=== PATIENT | female | born 1995 | race American Indian/Alaskan Native ===

== ENCOUNTER → 2024-08-07 | Outpatient (CLI) | payer MEDICAID, SELFPAY ==
--- NOTE | 2024-08-07 13:13 | XR_ITS ---
EXAMINATION: Ankle, right 3 views . Technique: Ankle AP, oblique, lateral 3 views Date and time of exam: August 07, 2024 1435 hours INDICATIONS: Patient fell last week with injury to the ankle, ankle pain. FINDINGS: No acute fracture Lateral malleolar soft tissue swelling No ankle dislocation IMPRESSION: No acute fracture
== END | disposition home or self-care (01) ==
PROVIDERS: PCP Physician Assistant; Referring Provider Physician Assistant; Visit Provider Physician Assistant
DX: S93.401A Sprain of unspecified ligament of right ankle, initial encounter (principal); W19.XXXA Unspecified fall, initial encounter
CPT/HCPCS: 73610

== ENCOUNTER 2025-01-08 10:33 | Outpatient (AMB) | payer BC, MEDICAID, SELFPAY ==
--- NOTE | 2025-01-08 10:41 | AMB.OBINITIA ---
Vital Signs 01/08/25 10:42 Height 1.65 m Height Method Stated Weight 108.976 kg Weight Measurement Method Standing Scale BMI 39.9 BP 122/81 Blood Pressure Source Automatic Cuff Blood Pressure Location Right Upper Arm Position Sitting Respiration 17 Pulse 98 Pulse Source Monitor Temp 97.8 F Temp Source Temporal Artery Scan Pulse Oximetry (%) 98 Oxygen Delivery Method Room Air Allergies/Home Meds Allergies & Medications Allergies No Known Allergies Allergy (Verified 01/08/25 15:57) Medication Reconciliation vit no.95-ferrous fumarate 28 mg-folic acid 800 mcg tablet () 1 tab PO DAILY 09/24/22 [History Confirmed 01/08/25] metformin 500 mg tablet 500 mg PO BID 11/30/22 [History Confirmed 01/08/25] aspirin 81 mg tablet,delayed release (Adult Aspirin Regimen) 81 mg PO QDAY #30 tabs 01/08/25 [Rx] diphenhydramine-zinc acetate 1 %-0.1 % topical cream (Benadryl Itch Stopping) 1 applic topical BID #28.3 grams 01/08/25 [Rx] vits no.130-ferrous fum 27 mg iron-folic acid 800 mcg tablet ( Vitamin) 1 tab PO QDAY #60 tabs 01/08/25 [Rx] Intake Visit Data Collection New Patient or Established: New Patient (never been to [facility]) Reason for Visit:: OBI TRANSFER Seen by Clinical Staff ONLY (RN/MA): No Analytical Tech Required: No Do You Feel Safe at Home: Yes Authorities Contacted: N/A PCP or OBGYN visit in last 3 months: No Hx Now: Yes Are you currently on any form of Control: No Pain Present Currently: No Pain Scale Used: Skinner-Lilly/Numerical Smoking Status Smoking Status: Never smoker Questionnaires Covid-19 Vaccine Questionnaire Has patient been vacinated for Covid-19 Have you been vacinated for Covid-19: No PHQ-9 PHQ-2 Over the last 2 weeks, how often have you been bothered by any of the following problems? 1. Little interest or pleasure in doing things: not at all 2. Feeling down, depressed, or hopeless: not at all Total score: 0 PHQ-9 3. Trouble falling or staying asleep, or sleeping too much: Not at all 4. Feeling tired or having little energy: Not at all 5. Poor appetite or overeating: Not at all 6. Feeling bad about yourself - or that you are a failure or have let yourself or your family down: Not at all 7. Trouble concentrating on things, such as reading the newspaper or watching television: Not at all 8. Moving or speaking so slowly that other people could have noticed? - Or the opposite - being so fidgety or restless that you have been moving around a lot more than usual: not at all 9. Thoughts that you would be better off or of hurting yourself in some way: Not at all Total score: 0 If you checked off any problems, how difficult have these problems made it for you to do your work, take care of things at home, or get along with other people?: not difficult at all Source: Developed by Drs. Gianluca Irizarry, Lluvia Rodriguez, Shahbaz England and colleagues, with an educational ki from [employer]. Depression screen completed yes Social History Living Situation History Marital Status: Lives With: Family Housing: House Tobacco History Smoking Status: Never smoker Second Hand Smoke Exposure: No Alcohol History Alcohol Intake: Former Domestic Abuse History Do You Feel Safe at Home: Yes History of Present Illness HPI Narrative 29-year-old 4 para 3 for OBI. Patient was referred by to OB [facility]. Happy about the . She has an LMP September 25, 2022. Her EDC based on that is July 01, 2025. Patient had gone to to labor over for verification and also complaints of a rash that she has had for 2 months. The rash started as a little patch and then has extended both her legs and her arms. It is very itchy. She was given Keflex to take 250 p.o. twice daily x 7 days and then she was given a Benadryl cream that seems to help a little bit. She was also given a hydrocortisone cream that she used for 3 days and it still has not improved. She reports movement. Previous x 1. Patient has a previous history occasionally drinking beer until she found out she was and she has stopped drinking. She also has previous history of vaping and nicotine use which she has stopped in 2017. So she is taking prenatals right now on Keflex. Denies leaking or bleeding. Denies any first trimester discomforts. Patient has a history of GDM with her last and. 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 Her last period September 25, 2024. Her EDC based on that 2025. Previous diabetes with the last on metformin. Patient is currently using advised that is checking her sugars daily. She reports that she has noticed that it increases her drops depending on her diet [place] for macular papular rash that she has had for 2 months and has worsened and spread more. She reports the rats can be very itchy. She denies any SAB complaints at this time and has light movement . I refilled the Benadryl cream that patient has been using for the rash. Consulted with OB. And did a prescription for Zyrtec that she will take daily. For the itching I ordered a OB panel with a CMP hemoglobin A1c and OB eye panel. We also did NIPT and carrier screens with that. Then I scheduled her an appointment [facility] with maternal- medicine for sono. Discussed SAB precautions. And I scheduled her for her next appointment with Dr. Ohara to evaluate her sugars. I discussed with patient GDM diet walking 40 minutes a day and I also talked to her if she could please Should the results of her blood sugars at fasting and then an hour after each. Reminded patient to bring her logs with her GDM results Menstrual History Menstrual reliability: definite Flow: normal Menstrual regularity: regular Monthly: Yes Age at menarche: 10 On control pills at conception: No Review of Systems Review of Systems Systems Reviewed: All systems reviewed, normal except as documented Exam Narrative Physical exam: FH=15, + fht 145, macular/papular rash both extremety and arms, red raised General Limitations: no limitations General Appearance: alert, in no apparent distress, comfortable, cooperative, healthy appearing, well developed and well groomed Head Head exam: atraumatic, normocephalic and normal inspection Neck Neck exam: Present normal inspection, full ROM and trachea midline Chest Chest inspection: Present normal inspection and symmetric chest wall rise Resp Respiratory exam: Present normal lung sounds bilaterally Card Cardiovascular exam: Present regular rate, normal rhythm and normal heart sounds Psych Psychiatric exam: Present normal affect and normal mood Skin Skin exam: Present warm, dry, intact, normal color and rash (over both leg and arms, macular,papular) Office Procedures OB Clinic LOC & Office Proc's Nursing/Assessment Patient Status: Initial/New Patient OB Clinic Nursing Assessment: Medication Reconciliation, Update PMH in EMR and Vital Signs OB Clinic Coordination of Care: Complex Care and Chronic Disease 1-5, Consent,records obtained, informed consent, Education Simp Pt/Fam, Results/Orders obtained and Staff clarify orders Special Needs: Heart tones New Patient Charge New Patient Point Assignment: [id number] New Patient Point Charge: MANAGER PMO Level 4 ([id number]) Assessment & Plan Diagnosis / Problem List (1) Encounter for supervision of high risk in second trimester, antepartum: Status: Acute (2) Encounter for maternal care for low transverse scar from previous delivery: Status: Acute Plan Patient is to continue to log her blood sugar results. And bring this with her at her next visit. Scheduled for maternal- medicine OB sono. NIPT and carrier screens drawn today. I started patient on Zyrtec daily. And refilled her Benadryl cream. Patient was advised to stop the Keflex. Discussed GDM diet and walking 40 minutes a day. OB panel was done with NIPT today along with CMP. A1c was also included. And patient will return with OB in 3 weeks to evaluate sugars. Additional Plan Follow Up: 4 Weeks (obc)
[2025-01-08 10:42] VITALS: BP 122/81; PULSE 98; RESP 17; TEMP 36.6; O2SAT 98; BMI 39.9
== END 2025-01-08 11:48 | disposition home or self-care (01) ==
LOC: HODSOBC 10:33
PROVIDERS: PCP Physician Assistant; Referring Provider Physician Assistant; Supervising Provider Advanced Practice Midwife; Visit Provider Advanced Practice Midwife
DX: O09.292 Supervision of pregnancy with other poor reproductive or obstetric history, second trimester (principal); O34.211 Maternal care for low transverse scar from previous cesarean delivery; Z3A.15 15 weeks gestation of pregnancy; O26.892 Other specified pregnancy related conditions, second trimester; L29.9 Pruritus, unspecified; Z86.32 Personal history of gestational diabetes; Z87.891 Personal history of nicotine dependence
CPT/HCPCS: 99204; G0463

== ENCOUNTER 2025-02-12 11:16 | Outpatient (AMB) | payer BC, MEDICAID, SELFPAY ==
[2025-02-12 11:34] VITALS: BP 118/78; PULSE 93; RESP 17; TEMP 36.7; O2SAT 95; BMI 39.5
--- NOTE | 2025-02-12 11:34 | OBCLNT_ITS ---
Vital Signs 02/12/25 11:34 Height 1.65 m Height Method Measured Weight 107.671 kg Weight Measurement Method Standing Scale BMI 39.5 BP 118/78 Blood Pressure Source Automatic Cuff Blood Pressure Location Right Upper Arm Position Sitting Respiration 17 Pulse 93 Pulse Source Monitor Temp 98.1 F Temp Source Temporal Artery Scan Pulse Oximetry (%) 95 Oxygen Delivery Method Room Air Allergies/Home Meds Allergies & Medications Allergies No Known Allergies Allergy (Verified 02/12/25 11:36) Medication Reconciliation vit no.95-ferrous fumarate 28 mg-folic acid 800 mcg tablet () 1 tab PO DAILY 09/24/22 [History Confirmed 02/12/25] metformin 500 mg tablet 500 mg PO BID 11/30/22 [History Confirmed 02/12/25] aspirin 81 mg tablet,delayed release (Adult Aspirin Regimen) 81 mg PO QDAY #30 tabs 01/08/25 [Rx Confirmed 02/12/25] diphenhydramine-zinc acetate 1 %-0.1 % topical cream (Benadryl Itch Stopping) 1 applic topical BID #28.3 grams 01/08/25 [Rx Confirmed 02/12/25] vits no.130-ferrous fum 27 mg iron-folic acid 800 mcg tablet ( Vitamin) 1 tab PO QDAY #60 tabs 01/08/25 [Rx Confirmed 02/12/25] Intake Visit Data Collection New Patient or Established: Established Patient (seen at [facility] within 3 years) Reason for Visit:: OBC Consent obtained for Telemed Visit: No Seen by Clinical Staff ONLY (RN/MA): No 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 1. Little interest or pleasure in doing things: not at all PHQ-9 8. Moving or speaking so slowly that other people could have noticed? - Or the opposite - being so fidgety or restless that you have been moving around a lot more than usual: not at all Source: Developed by Drs. Gianluca Irizarry, Lluvia Rodriguez, Shahbaz England and colleagues, with an educational ki from [employer]. 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 The rash has been present for about 2.5 months and is widespread. While the rash has thinned out and turned into spots, the patient continues to experience itching. She denies any discharge from the rash. Previous treatment prescribed by another provider was ineffective, but the patient found some relief with Benadryl and oatmeal baths. She has a history of gestational diabetes mellitus in her previous and was previously on metformin for GDM management. The patient mentions that this feels different from her previous one. She is currently approximately 20 weeks and has transferred care to this provider. She is currently monitoring her blood glucose levels due to her history of GDM. During the visit, an informal ultrasound revealed the possibility of twin , which may explain why the heartbeat was not easily detected earlier. This finding is pending confirmation by a formal ultrasound. She is a patient from the [facility] with an obstetric history of G3 T1 L1. Her previous resulted in delivery of a male named Tim. She has at least one child at home. ROS: Positive for persistent rash and itching for 2.5 months. Rash has thinned out but turned into spots, present everywhere. Negative for discharge from rash. Care OB Visit Log OB Flowsheet Initial Weight: Not Recorded Date -?-?-?-?-?-?-?-?-?-?-?-?- EGA Weight BP Alb Glu CTX Pres Fundal ht FHR Mov Dilation Station Effacement Hx Notes Visit Note 01/08/25 -?-?-?-?-?-?-?-?-?-?-?-?- 15w 0d 108.976 kg 122/81 absent unknown 15 A 145 -?-?-?-?-?-?-?-?-?-?-?-?- B active 29-year-old g ravida 4 para 3 for OBI. Her last period September 25, 2024. Her EDC based on that 2025. Previous diabetes with the last on metformin. Patient is currently using advised that is checking her sugars daily. She reports that she has noticed that it increases her drops depending on her diet [place] for macular papular rash that she has had for 2 months and has worsened and spread more. She reports the rats can be very itchy. She denies any SAB complaints at this time and has light movement . I refilled the Benadryl cream that patient has been using for the rash. Consulted with OB. Leslie atkins did a prescription for Zyrtec that she will take daily. For the itching I ordered a OB panel with a CMP hemoglobin A1c and OB eye panel. We also did NIPT and carrier screens with that. Then I scheduled her an appointment [facility] with maternal- medicine for sono. Discussed SAB precautions. And I scheduled her for her next appointment with Dr. Ohara to evaluate her sugars. I discussed with patient GDM diet walking 40 minutes a day and I also talked to her if she could please Should the results of her blood sugars at fasting and then an hour after each. Reminded patient to bring her logs with her GDM results 02/12/25 -?-?-?-?-?-?-?-?-?-?-?-?- 20w 0d 107.671 kg 118/78 absent unknown A 145 -?-?-?-?-?-?-?-?-?-?-?-?- B 150 - Patient is currently checking her blood glucose levels. - She reports a rash that developed week s after discovering her : - Duration: approximately 2.5 months - Distribution: widespread - Symptoms: itching, thinning of rash, formation of spots, scabbing - No discharge reported - Partial improvement noted - Previous treatment with unspecified medication was ineffective - Current management: Benadryl and oat meal baths providing some relief - Patient is a transfer of care from [facility] provider in the office. - She is from the [facility]. - Order OB panel labs (non-fasting) - Continue Benadryl and oatmeal baths fo r rash - Add blood tests to check liver and kid bri function - Schedule ultrasound with radiology dep artment to confirm twin - Monitor for call from [facility] regarding specialist ultrasound in [place] - Continue blood glucose monitoring MARJORIE Calculator Estimated Delivery Date Method Current WG Current Estimate 07/02/25 LMP (Certain) 23w 0d # 2 Exam Narrative Physical exam: - Skin: Rash observed, described as thinned out and turned into spots. Rash is widespread with scabbing present. No discharge noted from rash sites. - Abdominal: heartbeats auscultated. Two heads visualized on bedside ultrasound. Office Procedures OB Clinic LOC & Office Proc's Nursing/Assessment Patient Status: Established Patient OB Clinic Nursing Assessment: Medication Reconciliation, Update PMH in EMR and Vital Signs OB Clinic Coordination of Care: Complex Care and Chronic Disease 1-5, Consent,records obtained, informed consent, Education Simp Pt/Fam, 4+ Autho rizations needed, Lab and Imaging orders, Ref for ancillary service and Results/Orders obtained Special Needs: Heart tones Established Patient Charge Established Patient Point Assignment: 180 Established Patient Point Charge: EP Level 5 (160-above) Assessment & Plan Diagnosis / Problem List (1) Encounter for maternal care for low transverse scar from previous delivery: Status: Acute (2) Encounter for supervision of high risk in second trimester, antepartum: Status: Acute (3) Twin gestation in second trimester: Status: Acute Plan Twin : - Patient is approximately 20 weeks with twins, discovered during this visit. - Two distinct heartbeats and heads were visualized on brief in-office ultrasound. - This finding explains why the heartbeat was not easily detected earlier. Plan: - Refer for comprehensive ultrasound with radiology department. - Schedule follow-up with [facility] for specialist ultrasound in [place]. - Monitor closely for complications associated with twin pregnancies. - Educate patient on signs and symptoms to watch for in a twin . Persistent -Associated Rash: - Rash started weeks after confirmation and has persisted for approximately 2.5 months. - Widespread, itchy, and has evolved from initial presentation to spots. - Previous treatments were ineffective, but Benadryl and oatmeal baths have provided some relief. - Rash is thinning out but still present and causing discomfort. Plan: - Continue Benadryl as needed for itching. - Recommend oatmeal baths and good moisturizer use. - Order liver and kidney function tests to rule out underlying causes. - Reassess after lab results are available. History of Gestational Diabetes Mellitus (GDM): - Patient has history of GDM in previous and was treated with metformin. - Currently monitoring blood glucose levels. Plan: - Review patient's current blood glucose logs. - Order OB panel and routine labs. - Monitor closely for recurrence of GDM. - Discuss diabetes management strategies if GDM is diagnosed.
== END 2025-02-12 12:13 | disposition home or self-care (01) ==
LOC: HODSOBC 11:16
PROVIDERS: PCP Physician Assistant; Referring Provider Physician Assistant; Supervising Provider Obstetrics & Gynecology; Visit Provider Obstetrics & Gynecology
DX: O09.292 Supervision of pregnancy with other poor reproductive or obstetric history, second trimester (principal); O34.211 Maternal care for low transverse scar from previous cesarean delivery; O09.892 Supervision of other high risk pregnancies, second trimester; O30.002 Twin pregnancy, unspecified number of placenta and unspecified number of amniotic sacs, second trimester; O26.892 Other specified pregnancy related conditions, second trimester; R21 Rash and other nonspecific skin eruption; Z3A.20 20 weeks gestation of pregnancy; Z86.32 Personal history of gestational diabetes
CPT/HCPCS: 99215; G0463

== ENCOUNTER → 2025-02-12 | Outpatient (CLI) | payer BC, MEDICAID, SELFPAY ==
--- NOTE | 2025-02-12 13:05 | XR_ITS ---
Examination: age Limited TECHNIQUE: Sonographic images of the pelvis, transabdominal INDICATIONS: Second trimester twin gestations FINDINGS: Viable twin A breech presentation, spine maternal left Cardiac motion 148 BPM Placenta posterior grade 1. Umbilical cord insertion seen. Amniotic fluid index 13.5 cm. Cervix 3.0 cm. bladder kidneys stomach and spine seen. Ovaries obscured by bowel gas. Estimated gestational age 19 weeks 0 days Estimated weight 264.5 g Viable twin B transverse presentation spine anterior Cardiac motion 160 BPM Placenta anterior grade 1. Umbilical cord insertion seen bladder kidneys stomach and spine seen. Cervix 3.0 cm Ovaries obscured by bowel gas Estimated gestational age 18 weeks 1 day Estimated weight 211.8 g IMPRESSION: Viable twin gestations as above
[2025-02-12 13:38] LABS: Collection Type, Urine Clean Catch
[2025-02-12 14:10] LABS: Basophils # (Auto) 0.0 Thou/mm3 (0.0-0.2); Basophils % (Auto) 0 % (0-2.5); Eosinophils # (Auto) 0.1 Thou/mm3 (0.0-0.5); Eosinophils % (Auto) 1 % (0-10); Hematocrit 35.1 % (36.0-46.0); Hemoglobin 12.2 g/dL (12.0-16.0); Immature Granulocytes Auto 0.04 Thou/mm3 (0.00-0.00); Lymphocytes # (Auto) 1.5 Thou/mm3 (1.0-4.8); Lymphocytes % (Auto) 18 % (10-50); Mean Corpuscular HGB Conc 34.8 g/dl (31.0-37.0); Mean Corpuscular Hemoglobin 28.8 pg (25.0-35.0); Mean Corpuscular Volume 83 fL (80-100); Monocytes # (Auto) 0.5 Thou/mm3 (0.0-0.8); Monocytes % (Auto) 6 % (0-12); Neutrophils # (Auto) 6.5 Thou/mm3 (1.8-7.7); Neutrophils % (Auto) 75 % (37-80); Nucleated Red Blood Cell # 0.00 Thou/mm3 (0.00-0.00); Nucleated Red Blood Cell % 0 /100 WBC (0); Platelet Count 318 Thou/mm3 (140-440); RDW Standard Deviation 47.6 fL (36.4-46.3); Red Blood Count 4.23 Miln/mm3 (4.00-5.20); White Blood Count 8.7 Thou/mm3 (3.6-11.0)
[2025-02-12 14:16] LABS: Glucose Estimated Average 120 mg/dL (80-131); Hemoglobin A1C 5.8 % Hgb (4.8-6.0)
[2025-02-12 14:38] LABS: Syphilis Nonreactive (Nonreactive)
[2025-02-12 14:47] LABS: HIV (1&2) Antibody Rapid Non-Reactive
[2025-02-12 15:06] LABS: Hepatitis B Surface Antigen Non Reactive (Non React); Hepatitis C Antibody Non Reactive (Non React); Rubella, IgG Antibody Reactive (Immune)
[2025-02-12 16:36] LABS: Chlamydia trachomatis PCR Negative (Not Detect); Neisseria Gonorrhoeae DNA PCR Negative (Not Detect); Trichomonas Negative (Negative)
[2025-02-12 18:46] LABS: Bacteria,Urine Rare; Bilirubin,Urine Negative (Negative); Blood,Urine Negative (Negative); Clarity,Urine Clear (Clear/Hazy); Color,Urine Lt-Yellow (Lt Yel-Yel); Culture Indicated,Urine Not Indicated; Glucose, Urine Trace (Negative); Ketones,Urine Negative (Negative); Leukocyte Esterase,Urine Positive (Negative); Nitrite,Urine Negative (Negative); PH,Urine 7.0 (5.0-7.0); Protein,Urine Negative (Neg - Trace); RBC,Urine 2 /hpf (0-3); Specific Gravity,Urine 1.010 (1.001-1.035); Squamous Epithelial Cell,Urine 3 /hpf (0-5); Urobilinogen,Urine Negative mg/dL (0.0-1.0); WBC,Urine 1 /hpf (0-5)
== END | disposition home or self-care (01) ==
PROVIDERS: PCP Nurse Practitioner Family; Referring Provider Obstetrics & Gynecology; Visit Provider Obstetrics & Gynecology
DX: O30.002 Twin pregnancy, unspecified number of placenta and unspecified number of amniotic sacs, second trimester (principal); O34.211 Maternal care for low transverse scar from previous cesarean delivery; Z3A.18 18 weeks gestation of pregnancy
CPT/HCPCS: 36415; 76805; 76810; 81001; 83036; 85025; 86703; 86762; 86780; 86803; 86850; 86900; 86901; 87340; 87491; 87591; 87661

== ENCOUNTER 2025-03-06 10:32 | Outpatient (AMB) | payer BC, MEDICAID, SELFPAY ==
--- NOTE | 2025-03-06 11:27 | AMB.OBVISIT ---
Vital Signs 03/06/25 11:28 Height 1.65 m Height Method Stated Weight 107.218 kg Weight Measurement Method Standing Scale BMI 39.4 BP 122/76 Blood Pressure Source Automatic Cuff Blood Pressure Location Left Upper Arm Position Sitting Respiration 18 Pulse 90 Pulse Source Monitor Temp 98.1 F Temp Source Oral Pulse Oximetry (%) 98 Oxygen Delivery Method Room Air Allergies/Home Meds Allergies & Medications Allergies No Known Allergies Allergy (Verified 04/06/25 01:02) Medication Reconciliation vit no.95-ferrous fumarate 28 mg-folic acid 800 mcg tablet () 1 tab PO DAILY 09/24/22 [History Confirmed 03/06/25] metformin 500 mg tablet 500 mg PO BID 11/30/22 [History Confirmed 03/06/25] aspirin 81 mg tablet,delayed release (Adult Aspirin Regimen) 81 mg PO QDAY #30 tabs 01/08/25 [Rx Confirmed 03/06/25] diphenhydramine-zinc acetate 1 %-0.1 % topical cream (Benadryl Itch Stopping) 1 applic topical BID #28.3 grams 01/08/25 [Rx Confirmed 03/06/25] vits no.130-ferrous fum 27 mg iron-folic acid 800 mcg tablet ( Vitamin) 1 tab PO QDAY #60 tabs 01/08/25 [Rx Confirmed 03/06/25] Intake Visit Data Collection New Patient or Established: Established Patient (seen at [facility] within 3 years) Reason for Visit:: CARE Seen by Clinical Staff ONLY (RN/MA): No 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 1. Little interest or pleasure in doing things: not at all 2. Feeling down, depressed, or hopeless: not at all Total score: 0 PHQ-9 3. Trouble falling or staying asleep, or sleeping too much: Not at all 4. Feeling tired or having little energy: Not at all 5. Poor appetite or overeating: Not at all 6. Feeling bad about yourself - or that you are a failure or have let yourself or your family down: Not at all 7. Trouble concentrating on things, such as reading the newspaper or watching television: Not at all 8. Moving or speaking so slowly that other people could have noticed? - Or the opposite - being so fidgety or restless that you have been moving around a lot more than usual: not at all 9. Thoughts that you would be better off or of hurting yourself in some way: Not at all Total score: 0 Source: Developed by Drs. Gianluca Irizarry, Lluvia Rodriguez, Shahbaz England and colleagues, with an educational ki from [employer]. 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 Her last period September 25, 2024. Her EDC based on that 2025. Previous diabetes with the last on metformin. Patient is currently using advised that is checking her sugars daily. She reports that she has noticed that it increases her drops depending on her diet [place] for macular papular rash that she has had for 2 months and has worsened and spread more. She reports the rats can be very itchy. She denies any SAB complaints at this time and has light movement . I refilled the Benadryl cream that patient has been using for the rash. Consulted with OB. And did a prescription for Zyrtec that she will take daily. For the itching I ordered a OB panel with a CMP hemoglobin A1c and OB eye panel. We also did NIPT and carrier screens with that. Then I scheduled her an appointment [facility] with maternal- medicine for sono. Discussed SAB precautions. And I scheduled her for her next appointment with Dr. Ohara to evaluate her sugars. I discussed with patient GDM diet walking 40 minutes a day and I also talked to her if she could please Should the results of her blood sugars at fasting and then an hour after each. Reminded patient to bring her logs with her GDM results 02/12/25 <del>?</del> 17w 6d 107.671 kg 118/78 absent unknown A 145 <del>?</del> B 150 - Patient is currently checking her blood glucose levels. - She reports a rash that developed weeks after discovering her : - Duration: approximately 2.5 months - Distribution: widespread - Symptoms: itching, thinning of rash, formation of spots, scabbing - No discharge reported - Partial improvement noted - Previous treatment with unspecified medication was ineffective - Current management: Benadryl and oatmeal baths providing some relief - Patient is a transfer of care from another provider in the office. - She is from the [facility]. - Order OB panel labs (non-fasting) - Continue Benadryl and oatmeal baths for rash - Add blood tests to check liver and kidney function - Schedule ultrasound with radiology department to confirm twin - Monitor for call from [facility] specialist ultrasound in [place] - Continue blood glucose monitoring 03/06/25 <del>?</del> 21w 0d 107.218 kg 122/76 absent unstable A 135 <del>?</del> B 145 active - Jayda Nieto is a woman presenting for a visit for twins at 23 weeks and 1 day gestation. - Last ultrasound on 02/12/2025 showed: - Twin A: breech presentation, measuring 19 weeks 0 days - Twin B: transverse presentation, measuring 18 weeks 1 day - Patient reports her blood sugar levels have been stable - No longer experiencing low blood sugar episodes (previously dropped below 60) - Current levels typically stay between 100-120 mg/dL - Does not exceed 180 mg/dL, even after meals - Uses a continuous glucose monitor - Denies need for medication to control blood sugar at this time - Continue current management as all lab results are within normal limits - Repeat A1c test in one month - Follow up after appointment with Dr. Conti on March 19, 2025 - Await results from urgent referral to [facility] for detailed ultrasound of twins 03/27/25 <del>?</del> 24w 0d 108.919 kg 122/80 122/80 absent unknown A 145 <del>?</del> B 155 active History of prior delivery. Diamniotic dichorionic twin . Denies LOVING, VC, and epigastric pain. Return in 4 weeks. Continue MFM visits MARJORIE Calculator Estimated Delivery Date Method Current WG Current Estimate 07/17/25 Ultrasound #1 26w 3d Other Estimates 07/02/25 LMP (Certain) 28w 4d # 2 Notes Visit Date: 03/27/25 Last Updated by: Duane Vu MD - ultrasound: - Fetus A: 601 grams (1 pound, 5 ounces), 45th percentile - Fetus B: 586 grams (1 pound, 4 ounces), 24th percentile - Weight discordance: 7% - Targeted anatomy: normal - Cervix: within normal limits - Aneuploidy screening: negative Visit Date: 03/06/25 Last Updated by: Duane Vu MD Laboratory, Imaging, and Diagnostic Test Results - Date: February 12, 2025 - CBC: Hemoglobin 12.2 g/dL, Platelet count 318 - Hemoglobin A1c: 5.8% - Urinalysis: Within normal limits - Serology: - RPR: Negative - Gonorrhea: Negative - Chlamydia: Negative - Hepatitis B: Negative - Hepatitis C: Negative - HIV 1 and 2: Negative - Rubella: Immune - Trichomonas: Negative - Ultrasound (February 12, 2025): - Twin A: Breech presentation, measuring 19 weeks 0 days - Twin B: Transverse presentation, measuring 18 weeks 1 day Assessment & Plan Diagnosis / Problem List (1) Twin gestation in second trimester: Status: Acute (2) Encounter for maternal care for low transverse scar from previous delivery: Status: Acute Plan Problem List - Twin - Gestational diabetes mellitus Assessment 23-week 1-day twin gestation with Twin A in breech presentation and Twin B in transverse lie. Previous ultrasound at 19 weeks showed Twin A measuring 19 weeks 0 days and Twin B measuring 18 weeks 1 day. Patient's due date is consistent with last menstrual period and 19-week ultrasound. Recent lab results include hemoglobin 12.2, platelet count 318, and hemoglobin A1c 5.8. Serology testing negative for RPR, gonorrhea, chlamydia, hepatitis B, hepatitis C, HIV 1 and 2, and trichomonas. Patient is rubella immune. Urinalysis within normal limits. Patient reports good glucose control with levels not exceeding 180 mg/dL post-prandially and returning to baseline within an hour. Plan - Continue current management as all lab results are within normal limits - Repeat A1c test in one month - Follow up after appointment with Dr. Conti on March 19, 2025 - Await results from urgent referral to [facility] for detailed ultrasound of twins 1. Progress Reviewed gestational age, growth, and heart rate. Planned frequent visits (every 2 weeks until 36 weeks, then weekly). 2. Instructed patient to monitor movements and report decreases immediately. 3. Testing Counseled on routine third-trimester labs per guidelines. Discussed potential need for ultrasound or monitoring based on risk factors. 4. Preeclampsia Precaution Educated on preeclampsia signs: severe headache, vision changes, right upper quadrant pain, sudden swelling. Advised urgent reporting of symptoms and discussed blood pressure monitoring if high risk. 5. Labor Precautions Reviewed labor signs: regular contractions, pelvic pressure, back pain, bleeding, or fluid leakage. Instructed to seek immediate care for these symptoms. 6. Lifestyle and Delivery Preparation Reinforced vitamins, nutrition, and safe activity. Discussed plan, pain management, and . Advised on labor preparation (e.g., hospital bag) and expectations. 7. Psychosocial Support Assessed emotional well-being and offered resources for mental health or parenting support.
[2025-03-06 11:28] VITALS: BP 122/76; PULSE 90; RESP 18; TEMP 36.7; O2SAT 98; BMI 39.4
== END 2025-03-06 11:40 | disposition home or self-care (01) ==
LOC: HODSOBC 10:32
PROVIDERS: Supervising Provider Obstetrics & Gynecology; Visit Provider Obstetrics & Gynecology
DX: O09.892 Supervision of other high risk pregnancies, second trimester (principal); O24.415 Gestational diabetes mellitus in pregnancy, controlled by oral hypoglycemic drugs; O30.042 Twin pregnancy, dichorionic/diamniotic, second trimester; O32.1XX1 Maternal care for breech presentation, fetus 1; O32.2XX2 Maternal care for transverse and oblique lie, fetus 2; O09.292 Supervision of pregnancy with other poor reproductive or obstetric history, second trimester; O34.211 Maternal care for low transverse scar from previous cesarean delivery; Z3A.21 21 weeks gestation of pregnancy
CPT/HCPCS: 99214; G0463

== ENCOUNTER 2025-03-27 09:33 | Outpatient (AMB) | payer BC, MEDICAID, SELFPAY ==
[2025-03-27 09:51] VITALS: BP 122/80; PULSE 83; RESP 19; TEMP 36.3; O2SAT 98; BMI 40.0
--- NOTE | 2025-03-27 09:51 | AMB.OBINITIA ---
Vital Signs 03/27/25 09:51 Height 1.65 m Height Method Stated Weight 108.919 kg Weight Measurement Method Standing Scale BMI 40.0 BP 122/80 Blood Pressure Source Automatic Cuff Blood Pressure Location Right Upper Arm Position Sitting Respiration 19 Pulse 83 Pulse Source Monitor Temp 97.4 F Temp Source Temporal Artery Scan Pulse Oximetry (%) 98 Oxygen Delivery Method Room Air Allergies/Home Meds Allergies & Medications Allergies No Known Allergies Allergy (Verified 03/06/25 11:29) Intake Visit Data Collection New Patient or Established: Established Patient (seen at [facility] within 3 years) Reason for Visit:: OBC FOLLOW UP 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 1. Little interest or pleasure in doing things: not at all PHQ-9 8. Moving or speaking so slowly that other people could have noticed? - Or the opposite - being so fidgety or restless that you have been moving around a lot more than usual: not at all Total score: 0 Source: Developed by Drs. Gianluca Irizarry, Lluvia Rodriguez, Shahbaz England and colleagues, with an educational ki from [employer]. 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 Her last period September 25, 2024. Her EDC based on that 2025. Previous diabetes with the last on metformin. Patient is currently using advised that is checking her sugars daily. She reports that she has noticed that it increases her drops depending on her diet patient also saw the doctor on the [facility] and was given Keflex for macular papular rash that she has had for 2 months and has worsened and spread more. She reports the rats can be very itchy. She denies any SAB complaints at this time and has light movement . I refilled the Benadryl cream that patient has been using for the rash. Consulted with OB. And did a prescription for Zyrtec that she will take daily. For the itching I ordered a OB panel with a CMP hemoglobin A1c and OB eye panel. We also did NIPT and carrier screens with that. Then I scheduled her an appointment [facility] with maternal- medicine for sono. Discussed SAB precautions. And I scheduled her for her next appointment with Dr. Ohara to evaluate her sugars. I discussed with patient GDM diet walking 40 minutes a day and I also talked to her if she could please Should the results of her blood sugars at fasting and then an hour after each. Reminded patient to bring her logs with her GDM results 02/12/25 <del>?</del> 20w 0d 107.671 kg 118/78 absent unknown A 145 <del>?</del> B 150 - Patient is currently checking her blood glucose levels. - She reports a rash that developed weeks after discovering her : - Duration: approximately 2.5 months - Distribution: widespread - Symptoms: itching, thinning of rash, formation of spots, scabbing - No discharge reported - Partial improvement noted - Previous treatment with unspecified medication was ineffective - Current management: Benadryl and oatmeal baths providing some relief - Patient is a transfer of care from another provider in the office. - She is from the [facility]. - Order OB panel labs (non-fasting) - Continue Benadryl and oatmeal baths for rash - Add blood tests to check liver and kidney function - Schedule ultrasound with radiology department to confirm twin - Monitor for call from [facility] specialist ultrasound in [place] - Continue blood glucose monitoring
--- NOTE | 2025-03-27 09:53 | OBCLNT_ITS ---
Vital Signs 03/27/25 09:51 03/27/25 09:54 Height 1.65 m Height Method Stated Weight 108.919 kg Weight Measurement Method Standing Scale BMI 40.0 BP 122/80 122/80 Blood Pressure Source Automatic Cuff Blood Pressure Location Right Upper Arm Position Sitting Respiration 19 19 Pulse 83 83 Pulse Source Monitor Temp 97.4 F 97.4 F Temp Source Temporal Artery Scan Pulse Oximetry (%) 98 98 Oxygen Delivery Method Room Air Allergies/Home Meds Allergies & Medications Allergies No Known Allergies Allergy (Verified 03/06/25 11:29) Intake Visit Data Collection New Patient or Established: Established Patient (seen at [facility] within 3 years) Reason for Visit:: OBC FOLLOW UP Do You Feel Safe at Home: Yes Authorities Contacted: N/A PCP or OBGYN visit in last 3 months: Yes Date of Last PCP or OBGYN visit: 03/06/25 Hx Now: Yes Pain Present Currently: No Smoking Status Smoking Status: Never smoker Questionnaires PHQ-9 PHQ-2 Over the last 2 weeks, how often have you been bothered by any of the following problems? 1. Little interest or pleasure in doing things: not at all PHQ-9 8. Moving or speaking so slowly that other people could have noticed? - Or the opposite - being so fidgety or restless that you have been moving around a lot more than usual: not at all Source: Developed by Drs. Gianluca Irizarry, Lluvia Rodriguez, Shahbaz England and colleagues, with an educational ki from [employer]. 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 Her last period September 25, 2024. Her EDC based on that 2025. Previous diabetes with the last pregn [place] on metformin. Patient is currently using advised that is checking her sugars daily. She reports that she has noticed that it increases her drops depending on her diet [place] for macular papular rash that she has had for 2 months and has worsened and spread more. She reports the rats can be very itchy. She denies any SAB complaints at this time and has light movement . I refilled the Benadryl cream that patient has been using for the rash. Consulted with OB. And did a prescription for Zyrtec that she will take daily. For the itching I ordered a OB panel with a CMP hemoglobin A1c and OB eye panel. We also did NIPT and carrier screens with that. Then I scheduled her an appointment [facility] with maternal- medicine for sono. Discussed SAB precautions. And I scheduled her for her next appointment with Dr. Ohara to evaluate her sugars. I discussed with patient GDM diet walking 40 minutes a day and I also talked to her if she could please Should the results of her blood sugars at fasting and then an hour after each. Reminded patient to bring her logs with her GDM results 02/12/25 -?-?-?-?-?-?-?-?-?-?-?-?- 17w 6d 107.671 kg 118/78 absent unknown A 145 -?-?-?-?-?-?-?-?-?-?-?-?- B 150 - Patient is currently checking her blood glucose levels. - She reports a rash that developed week s after discovering her : - Duration: approximately 2.5 months - Distribution: widespread - Symptoms: itching, thinning of rash, formation of spots, scabbing - No discharge reported - Partial improvement noted - Previous treatment with unspecified medication was ineffective - Current management: Benadryl and oat meal baths providing some relief - Patient is a transfer of care from ano ther provider in the office. - She is from the [facility]. - Order OB panel labs (non-fasting) - Continue Benadryl and oatmeal baths fo r rash - Add blood tests to check liver and kid bri function - Schedule ultrasound with radiology dep artment to confirm twin - Monitor for call from [facility] specialist ultrasound in [place] - Continue blood glucose monitoring 03/27/25 -?-?-?-?-?-?-?-?-?-?-?-?- 24w 0d 108.919 kg 122/80 122/80 absent unknown A 145 -?-?-?-?-?-?-?-?-?-?-?-?- B 155 active History of prior delivery. Diamniotic dichorionic twin . Denies LOVING, VC, and epigastric pain. Return in 4 weeks. Continue MFM visits MARJORIE Calculator Estimated Delivery Date Method Current WG Current Estimate 07/17/25 Ultrasound #1 24w 4d Other Estimates 07/02/25 LMP (Certain) 26w 5d # 2 Notes Visit Date: 03/27/25 Last Updated by: Duane Vu MD - ultrasound: - Fetus A: 601 grams (1 pound, 5 ounces), 45th percentile - Fetus B: 586 grams (1 pound, 4 ounces), 24th percentile - Weight discordance: 7% - Targeted anatomy: normal - Cervix: within normal limits - Aneuploidy screening: negative Office Procedures OBC Clinic LOC & Office Proc's Nursing/Assessment Patient Status: Established Patient OB Clinic Nursing Assessment: Medication Reconciliation, Update PMH in EMR and Vital Signs OB Clinic Coordination of Care: Complex Care and Chronic Disease 1-5, Education Complex Pt/Fam, Consent,records obtained, informed consent, 1 Ins Authorization, Lab and Imaging orders and Staff clarify orders Special Needs: Heart tones Established Patient Charge Established Patient Point Assignment: 150 Established Patient Point Charge: EP Level 3 (80-115) Assessment & Plan Diagnosis / Problem List (1) Twin gestation in second trimester: Status: Acute (2) Encounter for maternal care for low transverse scar from previous delivery: Status: Acute Plan Problem List - Previous section - Gestational diabetes mellitus in previous - History of blood transfusion in previous due to anemia - Twin - Diamniotic dichorionic twins Assessment Twin gestation with fetus A measuring 601 grams (1 pound, 5 ounces) at 45th percentile and fetus B measuring 586 grams (1 pound, 4 ounces) at 24th percentile, with 7% weight discordance between twins. Patient has significant obstetric history including previous section, gestational diabetes mellitus in prior , history of blood transfusion secondary to anemia, and negative aneuploidy screening. Targeted anatomy survey and cervical assessment are within normal limits. 1. Progress Reviewed gestational age, growth, and heart rate. Planned frequent visits (every 2 weeks until 36 weeks, then weekly). 2. Instructed patient to monitor movements and report decreases immediately. 3. Testing Counseled on routine third-trimester labs per guidelines. Discussed potential need for ultrasound or monitoring based on risk factors. 4. Preeclampsia Precaution Educated on preeclampsia signs: severe headache, vision changes, right upper quadrant pain, sudden swelling. Advised urgent reporting of symptoms and discussed blood pressure monitoring if high risk. 5. Labor Precautions Reviewed labor signs: regular contractions, pelvic pressure, back pain, bleeding, or fluid leakage. Instructed to seek immediate care for these symptoms. 6. Lifestyle and Delivery Preparation Reinforced vitamins, nutrition, and safe activity. Discussed plan, pain management, and . Advised on labor preparation (e.g., hospital bag) and expectations. 7. Psychosocial Support Assessed emotional well-being and offered resources for mental health or parenting support.
[2025-03-27 09:54] VITALS: BP 122/80; PULSE 83; RESP 19; TEMP 36.3; O2SAT 98
== END 2025-03-27 10:28 | disposition home or self-care (01) ==
LOC: HODSOBC 09:33
PROVIDERS: Supervising Provider Obstetrics & Gynecology; Visit Provider Obstetrics & Gynecology
DX: O09.292 Supervision of pregnancy with other poor reproductive or obstetric history, second trimester (principal); O34.211 Maternal care for low transverse scar from previous cesarean delivery; O09.892 Supervision of other high risk pregnancies, second trimester; O30.042 Twin pregnancy, dichorionic/diamniotic, second trimester; Z3A.24 24 weeks gestation of pregnancy; Z87.59 Personal history of other complications of pregnancy, childbirth and the puerperium; Z86.32 Personal history of gestational diabetes
CPT/HCPCS: 99213; G0463

== ENCOUNTER 2025-04-06 01:01 | Emergency (ER) | payer BC, MEDICAID, SELFPAY ==
[2025-04-06 01:02] VITALS: BMI 39.1
[2025-04-06 01:09] VITALS: BP 116/77; PULSE 96; RESP 18; TEMP 36.7; O2SAT 98
--- NOTE | 2025-04-06 01:38 | EDNOTE_ITS ---
Upper Respiratory Inf. RME/HPI General Chief Complaint: Dental/Oral/Throat Stated Complaint: THROAT PAIN AND MUCUS; 27WKS Time Seen by Provider: 04/06/25 01:20 Arrival date/time: 04/06/25 01:01 29F with no significant PMH presents to ED with several days of sore throat and some congestion. Son has similar symptoms. Patient wants to be tested for strep. Patient is currently . Patient denies cough and fevers/chills. Limitations: no limitations Related Data Home Medications ?Medication ?Instructions ?Recorded ?Confirmed vit no.95-ferrous 1 tab PO DAILY 09/24/2204/20 fumarate 28 mg-folic acid 800 mcg tablet () metformin 500 mg tablet 500 mg PO BID 11/30/2203/06 Previous Rx's ?Medication ?Instructions ?Recorded aspirin 81 mg tablet,delayed 81 mg PO QDAY #30 tabs release (Adult Aspirin Regimen) diphenhydramine-zinc acetate 1 1 applic topical BID #2 8.3 grams 01/08/25 %-0.1 % topical cream (Benadryl Itch Stopping) vits no.130-ferrous fum 1 tab PO QDAY #60 tab s 01/08/25 27 mg iron-folic acid 800 mcg tablet ( Vitamin) Allergies Allergy/AdvReac Type Severity Reaction Status Date / Time No Known Allergies Allergy Verified 04/06/25 01:02 Review of Systems Review of Systems Systems Reviewed: All systems reviewed, normal except as documented ENT Ears, Nose, Mouth, and Throat: Reports as per HPI, Reports nasal congestion and Reports sore throat Past Medical History Past Medical History NEUROLOGIC: Negative Neurological Disorders or Seizures CARDIAC: Negative Cardiac Disorders or Congestive Heart Failure RESPIRATORY: Negative Chronic Obstructive Pulmonary Disease (COPD) GASTROINTESTINAL: Positive Gastroesophageal Reflux Disease (during - T ums); Negative Hepatitis GENITOURINARY: Negative Genitourinary Disorders or Renal Disease REPRODUCTIVE: Positive Previous Pregnancies (2011, 2016); Negative Endometriosis, Genital Herpes, Gonorrhea, Pelvic Inflammatory Disease, Syphilis or Uterine Prolapse MUSCULOSKELETAL: Positive Musculoskeletal Disorders ENDOCRINE: Positive Endocrine Disorders; Negative Diabetes Mellitus Type 1 or Diabetes Mellitus Type 2 HEMATOLOGIC: Negative Blood Disorders OTHER HISTORY: Positive Hospitalization (pregnancies) and Chicken Pox (14 y/o); Negative Autoimmune Disease, Down Syndrome, Developmental Delay, Shingles, Falls, Blood Transfusions, Blood Transfusion Reaction, Anesthesia Reactions, Organ Transplant, Chemotherapy, Radiation Therapy, Hyperbaric Therapy, MRSA, VRSA, Vancomycin-Resistant Enterococci, Human Immunodeficiency Virus (HIV), Measles, Mumps, Rubella ([place] Measles), Pertussis, Clostridium Difficile or Cancer Family History FAMILY HISTORY: Negative Family Psychiatric Problems, Family Respiratory Disorders, Family Cardiac Disorders, Family Gastrointestinal Problems, Family Cancer, Family Surgery or Family Anesthesia Reaction Surgical History SURGICAL: Negative Organ Transplant Social History SMOKING STATUS: Never smoker SECOND HAND EXPOSURE: No ED Exam General Limitations: Present no limitations General appearance: Present alert and in no apparent distress Head Head exam: Present atraumatic ENT ENT exam: Present normal exam, normal oropharynx and mucous membranes moist Neck Neck exam: Present normal inspection, full ROM and trachea midline Chest Chest inspection: Present normal inspection and symmetric chest wall rise Neurological Exam Neurological exam: Present alert and oriented X3 Psychiatric Psychiatric exam: Present normal affect and normal mood Skin Skin exam: Present warm, dry, intact and normal color Course Quality Measures none Orders Category Date Time Status Strep A Rapid Stat Lab 04/06/25 01:30 Completed Vital Signs Vital signs: Vital Signs Temperature 98.1 F 04/06/25 01:09 Pulse Rate 96 04/06/25 01:09 Respiratory Rate 18 04/06/25 01:09 Blood Pressure 116/77 04/06/25 01:09 Pulse Oximetry (%) 98 04/06/25 01:09 Oxygen Delivery Method Room Air 04/06/25 01:09 O2 at 98% on RA and WNLs Upper Respiratory Infection MDM Narrative MDM Narrative:: 29F with no significant PMH presents to ED with several days of sore throat and some congestion. Son has similar symptoms. Patient wants to be tested for strep. Patient is currently . Patient denies cough and fevers/chills. Physical exam reveals clear oropharynx and tongue. Normal WOB. Patient is afebrile, calm, and alert. Strep neg. rn allergy given. Patient data External records reviewed:: [facility] previous records Clinical information provided by:: patient Social determinants that could affect healthcare access:: none Patient has the following chronic illnesses:: none How is presenting disease/condition affected by chronic disease/condition?: no chronic disease Evaluation data The following diagnostics were reviewed and interpreted by me:: lab results Lab and/or radiology exams considered but not ordered:: ordered Interpretation Summary: above Medications / Prescriptions Medications or Prescriptions considered but not ordered:: not ordered Medication administrations:: n/a Consultations Consultation(s) initiated? (list below): No Diagnosis Upper Respiratory Differential Diagnosis: upper respiratory infection, croup, otitis media, sinusitis, viral infection, bronchitis, influenza and pharyngitis Most likely diagnosis given after review of the tests above:: URI Admission Indicated Admission indicated?: not indicated Admission Request Was there a request for admission?: No Disposition Plan Disposition Plan: Discharge Discharge Attestation Discharge Attestation: The patient and all family members were given an opportunity to ask questions and understood the discharge instructions. Discharge instructions specifically effects, indications for sooner follow up or return to the emergency department, and the expected course of current diagnosis. Patient condition: Stable Discharge Plan Plan Patient Disposition: HOME (Self Care) Discharge Disposition comment: Stable Prescriptions/Referrals Prescriptions/Med Rec: No Action Benadryl Itch Stopping 1-0.1 % cream 1 applic topical BID Qty: 28.3 1RF aspirin [Adult Aspirin Regimen] 81 mg tablet,delayed release (DR/EC) 81 mg PO QDAY Qty: 30 3RF Vitamin 27 mg iron- 800 mcg tablet 1 tab PO QDAY Qty: 60 2RF PNV no.95-ferrous fumarate-FA [] 28 mg iron- 800 mcg tablet 1 tab PO DAILY Patient Comments: TAKE 1 TABLET BY MOUTH EVERY DAY metformin 500 mg Tablet 500 mg PO BID Referrals: No Primary/Family,Physician [Primary Care Provider] - In 1 week Problem List Clinical Impression: URI (upper respiratory infection) Patient/Caregiver Discharge Instructions Education Materials: ED URI, Viral, No Abx (Adult) Additional Instructions: Please follow-up with PCP within 24-48 hours and return immediately if symptoms worsen. Benadryl is good for cough, congestion, and sleep. Keep hydrated. Advance diet as tolerated. Print Language: Luxembourgish Stand Alone Forms: Patient Portal Info Letter PA/HOME ENERGY RATER Supervising Physician RADHA/MIKE Supervising Physician: Dr. Orr
[2025-04-06 01:49] LABS: Strep A Rapid Negative (Negative)
== END 2025-04-06 02:15 | disposition home or self-care (01) ==
PROVIDERS: Physician Assistant; Emergency Provider Emergency Medicine
DX: O99.512 Diseases of the respiratory system complicating pregnancy, second trimester (principal); J06.9 Acute upper respiratory infection, unspecified; Z3A.27 27 weeks gestation of pregnancy
CPT/HCPCS: 87651; 99282

== ENCOUNTER 2025-04-16 17:23 | Observation (INO) | payer BC, MEDICAID, SELFPAY ==
[2025-04-16] VITALS (21 sets, daily range): BP systolic 124–128; BP diastolic 59–71; PULSE 86–108; RESP 20–99; TEMP 36.6; O2SAT 97–100; BMI 40.2
--- NOTE | 2025-04-16 17:49 | XR_ITS ---
EXAMINATION: age complete after first trimester, twin A TECHNIQUE: Multiple grayscale sonographic images of the pelvis Date and time: April 16, 20251821 hours INDICATIONS: Vaginal bleeding today FINDINGS: Viable twin A cephalic presentation Cardiac motion 144 bpm Placenta posterior grade 2. Umbilical cord insertion 3 vessels seen. Adequate amniotic fluid. bladder kidneys stomach and spine unremarkable, posterior spine Cervix 4.0 cm Ovaries obscured by bowel gas Estimated gestational age 27 weeks 2 days Estimated weight 1088 g IMPRESSION: Viable twin A cephalic presentation EXAMINATION: age complete after first trimester, twin B TECHNIQUE: Multiple grayscale sonographic images of the pelvis Date and time: April 16, 2025, 1823 hours INDICATION: Vaginal bleeding today. FINDINGS: Viable twin B breech presentation Cardiac motion 145 bpm Placenta anterior grade 2 Umbilical cord insertion 3 vessels seen Adequate amniotic fluid volume bladder kidneys stomach visualized spine maternal left Cervix 4.0 cm Estimated gestational age 27 weeks 1 day Estimated weight 959 g IMPRESSION: Viable twin B breech presentation
== END 2025-04-16 19:11 | disposition home or self-care (01) ==
PROVIDERS: Admitting Provider Obstetrics & Gynecology; Visit Provider Obstetrics & Gynecology
DX: O26.852 Spotting complicating pregnancy, second trimester (principal); Z3A.27 27 weeks gestation of pregnancy; O26.892 Other specified pregnancy related conditions, second trimester; R03.0 Elevated blood-pressure reading, without diagnosis of hypertension
CPT/HCPCS: 59025; 59899; 76805; 76810

== ENCOUNTER 2025-04-29 10:45 | Outpatient (AMB) | payer BC, MEDICAID, SELFPAY ==
[2025-04-29 10:57] VITALS: BP 128/79; PULSE 94; RESP 18; TEMP 36.2; O2SAT 97
--- NOTE | 2025-04-29 10:57 | OBCLNT_ITS ---
Vital Signs 04/29/25 10:57 Weight 108.579 kg Weight Measurement Method Standing Scale BP 128/79 Blood Pressure Source Automatic Cuff Blood Pressure Location Left Upper Arm Position Sitting Respiration 18 Pulse 94 Pulse Source Monitor Temp 97.2 F Temp Source Oral Pulse Oximetry (%) 97 Oxygen Delivery Method Room Air Allergies/Home Meds Allergies & Medications Allergies No Known Allergies Allergy (Verified 04/29/25 10:58) Medication Reconciliation vit no.95-ferrous fumarate 28 mg-folic acid 800 mcg tablet () 1 tab PO DAILY 09/24/22 [History Confirmed 04/29/25] metformin 500 mg tablet 500 mg PO BID 11/30/22 [History Confirmed 04/29/25] aspirin 81 mg tablet,delayed release (Adult Aspirin Regimen) 81 mg PO QDAY #30 tabs 01/08/25 [Rx Confirmed 04/29/25] diphenhydramine-zinc acetate 1 %-0.1 % topical cream (Benadryl Itch Stopping) 1 applic topical BID #28.3 grams 01/08/25 [Rx Confirmed 04/29/25] vits no.130-ferrous fum 27 mg iron-folic acid 800 mcg tablet ( Vitamin) 1 tab PO QDAY #60 tabs 01/08/25 [Rx Confirmed 04/29/25] Intake Visit Data Collection New Patient or Established: Established Patient (seen at [facility] within 3 years) Reason for Visit:: OBC Seen by Clinical Staff ONLY (RN/MA): No Insurance Investigator Required: No Do You Feel Safe at Home: Yes Authorities Contacted: N/A PCP or OBGYN visit in last 3 months: Yes Date of Last PCP or OBGYN visit: 04/16/25 Hx Now: Yes Are you currently on any form of Control: No Pain Present Currently: No Pain Scale Used: Skinner-Lilly/Numerical Pain scale:: 0 Smoking Status Smoking Status: Never smoker Immunizations Flu Vaccine in the Last 12 Months: No Flu Vaccine Exclusion Criteria: No Exclusion Criteria Questionnaires Covid-19 Vaccine Questionnaire Has patient been vacinated for Covid-19 Have you been vacinated for Covid-19: No PHQ-9 PHQ-2 Over the last 2 weeks, how often have you been bothered by any of the following problems? 1. Little interest or pleasure in doing things: not at all 2. Feeling down, depressed, or hopeless: not at all Total score: 0 PHQ-9 5. Poor appetite or overeating: Not at all 6. Feeling bad about yourself - or that you are a failure or have let yourself or your family down: Not at all 7. Trouble concentrating on things, such as reading the newspaper or watching television: Not at all 8. Moving or speaking so slowly that other people could have noticed? - Or the opposite - being so fidgety or restless that you have been moving around a lot more than usual: not at all 9. Thoughts that you would be better off or of hurting yourself in some way: Not at all If you checked off any problems, how difficult have these problems made it for you to do your work, take care of things at home, or get along with other peop le?: not difficult at all Source: Developed by Drs. Gianluca Irizarry, Lluvia Rodriguez, Shahbaz England and colleagues, with an educational ki from [employer]. 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 Her last period September 25, 2024. Her EDC based on that 2025. Previous diabetes with the last on metformin. Patient is currently using advised that is checking her sugars daily. She reports that she has noticed that it increases her drops depending on her diet patient [facility] for macular papular rash that she has had for 2 months and has worsened and spread more. She reports the rats can be very itchy. She denies any SAB complaints at this time and has light movement . I refilled the Benadryl cream that patient has been using for the rash. Consulted with OB. And did a prescription for Zyrtec that she will take daily. For the itching I ordered a OB panel with a CMP hemoglobin A1c and OB eye panel. We also did NIPT and carrier screens with that. Then I scheduled her an appointment [facility] with maternal- medicine for sono. Discussed SAB precautions. And I scheduled her for her next appointment with Dr. Ohara to evaluate her sugars. I discussed with patient GDM diet walking 40 minutes a day and I also talked to her if she could please Should the results of her blood sugars at fasting and then an hour after each. Reminded patient to bring her logs with her GDM results 02/12/25 -?-?-?-?-?-?-?-?-?-?--?-?- 17w 6d 107.671 kg 118/78 absent unknown A 145 -?-?-?-?-?-?-?-?-?-?-?-?- B 150 - Patient is currently checking her blood glucose levels. - She reports a rash that developed week s after discovering her : - Duration: approximately 2.5 months - Distribution: widespread - Symptoms: itching, thinning of rash, formation of spots, scabbing - No discharge reported - Partial improvement noted - Previous treatment with unspecified medication was ineffective - Current management: Benadryl and oat meal baths providing some relief - Patient is a transfer of care from ano ther provider in the office. - She is from the [facility]. - Order OB panel labs (non-fasting) - Continue Benadryl and oatmeal baths fo r rash - Add blood tests to check liver and kid bri function - Schedule ultrasound with radiology dep artment to confirm twin - Monitor for call from [facility] specialist ultrasound in [place] - Continue blood glucose monitoring 03/06/25 -?-?-?-?-?-?-?-?-?-?-?-?- 21w 0d 107.218 kg 122/76 absent unstable A 135 -?-?-?-?-?-?-?-?-?-?-?-?- B 145 active - Jayda Nieto is a woman presenting for a visit for twins at 23 weeks and 1 day gestation. - Last ultrasound on 02/12/2025 showed: - Twin A: breech presentation, measuri ng 19 weeks 0 days - Twin B: transverse presentation, syd suring 18 weeks 1 day - Patient reports her blood sugar levels have been stable - No longer experiencing low blood sug ar episodes (previously dropped below 60) - Current levels typically stay betwee n 100-120 mg/dL - Does not exceed 180 mg/dL, even afte r meals - Uses a continuous glucose monitor - Denies need for medication to control blood sugar at this time - Continue current management as all lab results are within normal limits - Repeat A1c test in one month - Follow up after appointment with Dr. Yudelka mays on March 19, 2025 - Await results from urgent referral to [facility] for detailed ultrasound of twins 03/27/25 -?-?-?-?-?--?-?-?-?-?-?-?- 24w 0d 108.919 kg 122/80 122/80 absent unknown A 145 -?-?-?-?-?-?-?-?-?-?-?-?- B 155 active History of prior delivery. Diamniotic dichorionic twin . Denies LOVING, VC, and epigastric pain. Return in 4 weeks. Continue MFM visits 04/29/25 -?-?-?-?-?-?-?-?-?-?-?-?- 28w 5d 108.579 kg 128/79 absent unstable A 143 -?-?-?-?-?-?-?-?-?-?-?-?- B 132 active - She re ports both babies are active and don't stop moving. 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 - States it's harder to sit down at w ork now and has to stand up frequently. 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 - Her boss has agreed to allow her to wo rk from home. - She plans to finish this week and st art working from home on May 06 (next Tuesday). - Requests documentation for her HR de partment regarding work accommodation. - She had a one-hour glucose tolerance t est performed at [facility] with results reported as elevated at 194 mg/dL. - The ultrasound facility informed her the glucose was high but did not provide specific numbers. - She was told she likely needs a 3-ho ur glucose tolerance test. - She chooses to perform home glucose mo nitoring with fingersticks rather than the 3-hour glucose tolerance test. - Her next [facility] ultrasound appointment is scheduled for May 16 at [facility]. - Patient wi ll perform home glucose monitoring with glucometer 4 times daily: fasting upon waking and 1 hour after each meal - Provide work accommodation letter for patient to workers' compensation hearings officer starting May 06, 2025 - Follow-up appointment in 2 weeks - Next [facility] ultrasound scheduled for Liliane hobbs [address] Hanson MARJORIE Calculator Estimated Delivery Date Method Current WG Current Estimate 07/17/25 Ultrasound #1 28w 6d Other Estimates 07/02/25 LMP (Certain) 31w 0d # 2 Notes Visit Date: 04/29/25 Last Updated by: Duane Vu MD Laboratory, Imaging, and Diagnostic Test Results - One-[facility] glucose [facility] 194 mg[facility] - NIPT: Performed at 8 weeks 3 days gestation - [facility] ultrasound (May 16, 2025): Twin B with left urinary tract dilatation noted - heart rate monitoring: Twin A 143 bpm, Twin B 132 bpm Visit Date: 03/27/25 Last Updated by: Duane Vu MD - ultrasound: - Fetus A: 601 grams (1 pound, 5 ounces), 45th percentile - Fetus B: 586 grams (1 pound, 4 ounces), 24th percentile - Weight discordance: 7% - Targeted anatomy: normal - Cervix: within normal limits - Aneuploidy screening: negative Visit Date: 03/06/25 Last Updated by: Duane Vu MD Laboratory, Imaging, and Diagnostic Test Results - Date: February 12, 2025 - CBC: Hemoglobin 12.2 g/dL, Platelet count 318 - Hemoglobin A1c: 5.8% - Urinalysis: Within normal limits - Serology: - RPR: Negative - Gonorrhea: Negative - Chlamydia: Negative - Hepatitis B: Negative - Hepatitis C: Negative - HIV 1 and 2: Negative - Rubella: Immune - Trichomonas: Negative - Ultrasound (February 12, 2025): - Twin A: Breech presentation, measuring 19 weeks 0 days - Twin B: Transverse presentation, measuring 18 weeks 1 day Office Procedures OBC Clinic LOC & Office Proc's Nursing/Assessment Patient Status: Established Patient OB Clinic Nursing Assessment: Medication Reconciliation, Update PMH in EMR and Vital Signs OB Clinic Coordination of Care: Consent,records obtained, informed consent, Education Simp Pt/Fam, Lab and Imaging orders, Results/Orders obtained and Staff clarify orders Special Needs: Heart tones Established Patient Charge Established Patient Point Assignment: 110 Established Patient Point Charge: EP Level 3 (80-115) Assessment & Plan Diagnosis / Problem List (1) Twin gestation in second trimester: Status: Acute (2) Encounter for maternal care for low transverse scar from previous delivery: Status: Acute Plan Problem List - Gestational diabetes mellitus - Twin , dichorionic - urinary tract dilatation Assessment 28-week 5-day dichorionic twin with gestational diabetes mellitus, evidenced by elevated 1-hour glucose tolerance test result of 194 mg/dL. Twin B has newly identified left urinary tract dilatation on recent maternal- medicine ultrasound. Patient is 4, para 3 with history of previous section for breech presentation. Both heart rates are reassuring at 143 and 132 beats per minute with reported active movements. Plan - Patient will perform home glucose monitoring with glucometer 4 times daily: fasting upon waking and 1 hour after each meal - Provide work accommodation letter for patient to workers' compensation hearings officer starting May 06, 2025 - Follow-up appointment in 2 weeks - Next [facility] ultrasound scheduled for May 16, [address] Hanson 1. Progress Reviewed gestational age (28 weeks 5 days), growth, and heart rate (Baby A: 143 bpm, Baby B: 132 bpm). Planned frequent visits (every 2 weeks until 36 weeks, then weekly). 2. Instructed patient to monitor movements and report decreases immediately. 3. Testing Counseled on routine third-trimester labs per guidelines. Discussed potential need for ultrasound or monitoring based on risk factors. 4. Preeclampsia Precaution Educated on preeclampsia signs: severe headache, vision changes, right upper quadrant pain, sudden swelling. Advised urgent reporting of symptoms and discussed blood pressure monitoring if high risk. 5. Labor Precautions Reviewed labor signs: regular contractions, pelvic pressure, back pain, bleeding, or fluid leakage. Instructed to seek immediate care for these symptoms. 6. Lifestyle and Delivery Preparation Reinforced vitamins, nutrition, and safe activity. Discussed plan, pain management, and . Advised on labor preparation (e.g., hospital bag) and expectations. 7. Psychosocial Support Assessed emotional well-being and offered resources for mental health or parenting support.
== END 2025-04-29 11:12 | disposition home or self-care (01) ==
LOC: HODSOBC 10:45
PROVIDERS: Supervising Provider Obstetrics & Gynecology; Visit Provider Obstetrics & Gynecology
DX: O09.893 Supervision of other high risk pregnancies, third trimester (principal); O30.043 Twin pregnancy, dichorionic/diamniotic, third trimester; O24.415 Gestational diabetes mellitus in pregnancy, controlled by oral hypoglycemic drugs; O09.293 Supervision of pregnancy with other poor reproductive or obstetric history, third trimester; O34.211 Maternal care for low transverse scar from previous cesarean delivery; Z3A.28 28 weeks gestation of pregnancy
CPT/HCPCS: 99213; G0463

== ENCOUNTER 2025-05-17 11:21 | Outpatient (AMB) | payer BC, MEDICAID, SELFPAY ==
[2025-05-17 11:48] VITALS: BP 126/83; PULSE 106; RESP 18; TEMP 36.5; O2SAT 95; BMI 40.8
--- NOTE | 2025-05-17 11:48 | OBCLNT_ITS ---
Vital Signs 05/17/25 11:48 Height 1.65 m Height Method Stated Weight 111.3 kg Weight Measurement Method Standing Scale BMI 40.8 BP 126/83 Blood Pressure Source Automatic Cuff Blood Pressure Location Right Upper Arm Position Sitting Respiration 18 Pulse 106 H Pulse Source Monitor Temp 97.7 F Temp Source Temporal Artery Scan Pulse Oximetry (%) 95 Oxygen Delivery Method Room Air Allergies/Home Meds Allergies & Medications Allergies No Known Allergies Allergy (Verified 05/17/25 14:02) Medication Reconciliation vit no.95-ferrous fumarate 28 mg-folic acid 800 mcg tablet () 1 tab PO DAILY 09/24/22 [History Confirmed 05/17/25] metformin 500 mg tablet 500 mg PO BID 11/30/22 [History Confirmed 05/17/25] aspirin 81 mg tablet,delayed release (Adult Aspirin Regimen) 81 mg PO QDAY #30 tabs 01/08/25 [Rx Confirmed 05/17/25] diphenhydramine-zinc acetate 1 %-0.1 % topical cream (Benadryl Itch Stopping) 1 applic topical BID #28.3 grams 01/08/25 [Rx Confirmed 05/17/25] vits no.130-ferrous fum 27 mg iron-folic acid 800 mcg tablet ( Vitamin) 1 tab PO QDAY #60 tabs 01/08/25 [Rx Confirmed 05/17/25] amoxicillin 875 mg-potassium clavulanate 125 mg tablet 1 tab PO BID 7 days #14 tabs 05/17/25 [Rx Confirmed 05/17/25] Immunizations Immunizations Flu Vaccine in the Last 12 Months: No Flu Vaccine Exclusion Criteria: No Exclusion Criteria Care OB Visit Log OB Flowsheet Initial Weight: Not Recorded Date -?-?-?-?-?-?-?-?-?-?-?-?- EGA Weight BP Alb Glu CTX Pres Fundal ht FHR Mov Dilation Station Effacement Hx Notes Visit Note 01/08/25 -?-?-?-?-?-?-?-?-?-?-?-?- 12w 6d 108.976 kg 122/81 absent unknown 15 A 145 -?-?-?-?-?-?-?-?-?-?-?-?- B active 29-year-old g ravida 4 para 3 for OBI. Her last period September 25, 2024. Her EDC based on that 2025. Previous diabetes with the last on metformin. Patient is currently using advised that is checking her sugars daily. She reports that she has noticed that it increases her drops depending on her diet patient [facility] [place] and was given Keflex for macular papular rash that she has had for 2 months and has worsened and spread more. She reports the rats can be very itchy. She denies any SAB complaints at this time and has light movement . I refilled the Benadryl cream that patient has been using for the rash. Consulted with OB. And did a prescription for Zyrtec that she will take daily. For the itching I ordered a OB panel with a CMP hemoglobin A1c and OB eye panel. We also did NIPT and carrier screens with that. Then I scheduled her an appointment [facility] with maternal- medicine for sono. Discussed SAB precautions. And I scheduled her for her next appointment with Dr. Ohara to evaluate her sugars. I discussed with patient GDM diet walking 40 minutes a day and I also talked to her if she could please Should the results of her blood sugars at fasting and then an hour after each. Reminded patient to bring her logs with her GDM results 02/12/25 -?-?-?-?-?-?-?-?-?-?-?-?- 17w 6d 107.671 kg 118/78 absent unknown A 145 -?-?-?-?-?-?-?-?-?-?-?-?- B 150 - Patient is currently checking her blood glucose levels. - She reports a rash that developed week s after discovering her : - Duration: approximately 2.5 months - Distribution: widespread - Symptoms: itching, thinning of rash, formation of spots, scabbing - No discharge reported - Partial improvement noted - Previous treatment with unspecified medication was ineffective - Current management: Benadryl and oat meal baths providing some relief - Patient is a transfer of care from ano ther provider in the office. - She is from the [facility]. - Order OB panel labs (non-fasting) - Continue Benadryl and oatmeal baths fo r rash - Add blood tests to check liver and kid bri function - Schedule ultrasound with radiology dep artment to confirm twin - Monitor for call from [facility] regarding specialist ultrasound in [place] - Continue blood glucose monitoring 03/06/25 -?-?-?-?-?-?-?-?-?-?-?-?- 21w 0d 107.218 kg 122/76 absent unstable A 135 -?-?-?-?-?-?--?-?-?-?-?-?- B 145 active - Jayda Nieto is a woman presenting for a visit for twins at 23 weeks and 1 day gestation. - Last ultrasound on 02/12/2025 showed: - Twin A: breech presentation, measuri ng 19 weeks 0 days - Twin B: transverse presentation, syd suring 18 weeks 1 day - Patient reports her blood sugar levels have been stable - No longer experiencing low blood sug ar episodes (previously dropped below 60) - Current levels typically stay betwee n 100-120 mg/dL - Does not exceed 180 mg/dL, even afte r meals - Uses a continuous glucose monitor - Denies need for medication to control blood sugar at this time - Continue current management as all lab results are within normal limits - Repeat A1c test in one month - Follow up after appointment with Dr. Yudelka mays on March 19, 2025 - Await results from urgent referral to [facility] for detailed ultrasound of twins 03/27/25 -?-?-?-?-?-?-?-?-?-?-?-?- 24w 0d 108.919 kg 122/80 122/80 absent unknown A 145 -?-?-?-?-?-?-?-?-?-?-?-?- B 155 active History of prior delivery. Diamniotic dichorionic twin . Denies LOVING, VC, and epigastric pain. Return in 4 weeks. Continue MFM visits 04/29/25 -?-?-?-?-?-?-?-?-?-?-?-?- 28w 5d 108.579 kg 128/79 absent unstable A 143 -?-?-?-?-?-?-?-?-?-?-?-?- B 132 active - She re ports both babies are active and don't stop moving. 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 - States it's harder to sit down at w ork now and has to stand up frequently. 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 - Her boss has agreed to allow her to wo rk from home. - She plans to finish this week and st art working from home on May 06 (next Tuesday). - Requests documentation for her HR de partment regarding work accommodation. - She had a one-hour glucose tolerance t est performed at [facility] with results reported as elevated at 194 mg/dL. - The ultrasound facility informed her the glucose was high but did not prov won specific numbers. - She was told she likely needs a 3-ho ur glucose tolerance test. - She chooses to perform home glucose mo nitoring with fingersticks rather than the 3-hour glucose tolerance test. - Her next [facility] ultrasound appointment is scheduled for May 16 at [facility]. - Patient wi ll perform home glucose monitoring with glucometer 4 times daily: fasting upon waking and 1 hour after each meal - Provide work accommodation letter for patient to day care worker starting May 06, 2025 - Follow-up appointment in 2 weeks - Next [facility] ultrasound scheduled for Liliane hobbs [address] Valentin AMADOR Calculator Estimated Delivery Date Method Current WG Current Estimate 07/17/25 Ultrasound #1 31w 2d Other Estimates 07/02/25 LMP (Certain) 33w 3d # 2 Notes Visit Date: 04/29/25 Last Updated by: Duane Vu MD Laboratory, Imaging, and Diagnostic Test Results - One-hour glucose tolerance test: 194 mg/dL (performed at [facility]) - NIPT: Performed at 8 weeks 3 days gestation - MFM ultrasound (May 16, 2025): Twin B with left urinary tract dilatation noted - heart rate monitoring: Twin A 143 bpm, Twin B 132 bpm Visit Date: 03/27/25 Last Updated by: Duane Vu MD - ultrasound: - Fetus A: 601 grams (1 pound, 5 ounces), 45th percentile - Fetus B: 586 grams (1 pound, 4 ounces), 24th percentile - Weight discordance: 7% - Targeted anatomy: normal - Cervix: within normal limits - Aneuploidy screening: negative Visit Date: 03/06/25 Last Updated by: Duane Vu MD Laboratory, Imaging, and Diagnostic Test Results - Date: February 12, 2025 - CBC: Hemoglobin 12.2 g/dL, Platelet count 318 - Hemoglobin A1c: 5.8% - Urinalysis: Within normal limits - Serology: - RPR: Negative - Gonorrhea: Negative - Chlamydia: Negative - Hepatitis B: Negative - Hepatitis C: Negative - HIV 1 and 2: Negative - Rubella: Immune - Trichomonas: Negative - Ultrasound (February 12, 2025): - Twin A: Breech presentation, measuring 19 weeks 0 days - Twin B: Transverse presentation, measuring 18 weeks 1 day Office Procedures OBC Clinic LOC & Office Proc's Nursing/Assessment Patient Status: Established Patient OB Clinic Nursing Assessment: Medication Reconciliation, Update PMH in EMR and Vital Signs OB Clinic Coordination of Care: Complex Care and Chronic Disease 1-5, Education Complex Pt/Fam, Consent,records obtained, informed consent and Staff clarify orders Special Needs: Heart tones Established Patient Charge Established Patient Point Assignment: 120 Established Patient Point Charge: EP Level 4 (120-155) Assessment & Plan Diagnosis / Problem List (1) UTI in , antepartum: Status: Acute
== END 2025-05-17 11:59 | disposition home or self-care (01) ==
PROVIDERS: Supervising Provider Obstetrics & Gynecology; Visit Provider Obstetrics & Gynecology
DX: O09.893 Supervision of other high risk pregnancies, third trimester (principal); O23.43 Unspecified infection of urinary tract in pregnancy, third trimester; Z3A.31 31 weeks gestation of pregnancy
CPT/HCPCS: 99214; G0463

== ENCOUNTER 2025-05-26 10:16 | Observation (INO) | payer BC, MEDICAID, SELFPAY ==
[2025-05-26] VITALS (7 sets, daily range): BP systolic 122–132; BP diastolic 66–83; PULSE 84–108; RESP 18–98; TEMP 36.8; BMI 41.4
== END 2025-05-26 11:45 | disposition home or self-care (01) ==
PROVIDERS: Admitting Provider Obstetrics & Gynecology; Visit Provider Obstetrics & Gynecology
DX: Z34.83 Encounter for supervision of other normal pregnancy, third trimester (principal); Z3A.32 32 weeks gestation of pregnancy
CPT/HCPCS: 59899

== ENCOUNTER 2025-05-31 11:27 | Outpatient (AMB) | payer BC, MEDICAID, SELFPAY ==
--- NOTE | 2025-05-31 11:46 | OBCLNT_ITS ---
Vital Signs 05/31/25 11:47 Weight 111.64 kg Weight Measurement Method Standing Scale BP 125/83 Blood Pressure Source Automatic Cuff Blood Pressure Location Left Upper Arm Position Sitting Respiration 18 Pulse 90 Pulse Source Monitor Temp 97.2 F Temp Source Oral Pulse Oximetry (%) 98 Oxygen Delivery Method Room Air Allergies/Home Meds Allergies & Medications Allergies No Known Allergies Allergy (Verified 06/01/25 16:16) Medication Reconciliation vit no.95-ferrous fumarate 28 mg-folic acid 800 mcg tablet () 1 tab PO DAILY 09/24/22 [History Confirmed 06/01/25] metformin 500 mg tablet 500 mg PO BID 11/30/22 [History Confirmed 06/01/25] aspirin 81 mg tablet,delayed release (Adult Aspirin Regimen) 81 mg PO QDAY #30 tabs 01/08/25 [Rx Confirmed 06/01/25] diphenhydramine-zinc acetate 1 %-0.1 % topical cream (Benadryl Itch Stopping) 1 applic topical BID #28.3 grams 01/08/25 [Rx Confirmed 05/31/25] vits no.130-ferrous fum 27 mg iron-folic acid 800 mcg tablet ( Vitamin) 1 tab PO QDAY #60 tabs 01/08/25 [Rx Confirmed 05/31/25] Immunizations Immunizations Flu Vaccine in the Last 12 Months: No Flu Vaccine Exclusion Criteria: No Exclusion Criteria Care OB Visit Log OB Flowsheet Initial Weight: Not Recorded Date -?-?-?-?-?-?-?-?-?-?-?-?- EGA Weight BP Alb Glu CTX Pres Fundal ht FHR Mov Dilation Station Effacement Hx Notes Visit Note 01/08/25 -?-?-?-?-?-?-?-?-?-?-?-?- 12w 6d 108.976 kg 122/81 absent unknown 15 A 145 -?-?-?-?-?-?-?-?-?-?-?-?- B active 29-year-old g ravida 4 para 3 for OBI. Her last period September 25, 2024. Her EDC based on that 2025. Previous diabetes with the last on metformin. Patient is currently using advised that is checking her sugars daily. She reports that she has noticed that it increases her drops depending on her diet patient [facility] and was given Keflex for macular papular rash that she has had for 2 months and has worsened and spread more. She reports the rats can be very itchy. She denies any SAB complaints at this time and has light movement . I refilled the Benadryl cream that patient has been using for the rash. Consulted with OB. And did a prescription for Zyrtec that she will take daily. For the itching I ordered a OB panel with a CMP hemoglobin A1c and OB eye panel. We also did NIPT and carrier screens with that. Then I scheduled her an appointment [facility] with maternal- medicine for sono. Discussed SAB precautions. And I scheduled her for her next appointment with Dr. Ohara to evaluate her sugars. I discussed with patient GDM diet walking 40 minutes a day and I also talked to her if she could please Should the results of her blood sugars at fasting and then an hour after each. Reminded patient to bring her logs with her GDM results 02/12/25 -?-?-?-?-?-?-?-?-?-?-?-?- 17w 6d 107.671 kg 118/78 absent unknown A 145 -?-?-?-?-?-?-?-?-?-?-?-?- B 150 - Patient is currently checking her blood glucose levels. - She reports a rash that developed week s after discovering her : - Duration: approximately 2.5 months - Distribution: widespread - Symptoms: itching, thinning of rash, formation of spots, scabbing - No discharge reported - Partial improvement noted - Previous treatment with unspecified medication was ineffective - Current management: Benadryl and oat meal baths providing some relief - Patient is a transfer of care from ano ther provider in the office. - She is from the [facility]. - Order OB panel labs (non-fasting) - Continue Benadryl and oatmeal baths fo r rash - Add blood tests to check liver and kid bri function - Schedule ultrasound with radiology dep artment to confirm twin - Monitor for call from [facility] specialist ultrasound in [place] - Continue blood glucose monitoring 03/06/25 -?-?-?-?-?-?-?-?-?-?-?-?- 21w 0d 107.218 kg 122/76 absent unstable A 135 -?-?-?-?-?-?-?-?-?-?-?-?- B 145 active - Jayda Nieto is a woman presenting for a visit for twins at 23 weeks and 1 day gestation. - Last ultrasound on 02/12/2025 showed: - Twin A: breech presentation, measuri ng 19 weeks 0 days - Twin B: transverse presentation, syd suring 18 weeks 1 day - Patient reports her blood sugar levels have been stable - No longer experiencing low blood sug ar episodes (previously dropped below 60 ) - Current levels typically stay betwee n 100-120 mg/dL - Does not exceed 180 mg/dL, even afte r meals - Uses a continuous glucose monitor - Denies need for medication to control blood sugar at this time - Continue current management as all lab results are within normal limits - Repeat A1c test in one month - Follow up after appointment with Dr. Yudelka mays on March 19, 2025 - Await results from urgent referral to [facility] for detailed ultrasound of twins 03/27/25 -?-?-?-?-?-?-?-?-?-?-?-?- 24w 0d 108.919 kg 122/80 122/80 absent unknown A 145 -?-?-?-?-?-?-?-?-?-?-?-?- B 155 active History of prior delivery. Diamniotic dichorionic twin . Denies LOVING, VC, and epigastric pain. Return in 4 weeks. Continue [facility] visits 04/29/25 -?-?-?-?-?-?-?-?-?-?-?-?- 28w 5d 108.579 kg 128/79 absent unstable A 143 -?-?-?-?-?-?-?-?-?-?-?-?- B 132 active - She re ports both babies are active and don't stop moving. 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 - States it's harder to sit down at w ork now and has to stand up frequently. 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 - Her boss has agreed to allow her to wo rk from home. - She plans to finish this week and st art working from home on May 06 (next Tuesday). - Requests documentation for her HR de partment regarding work accommodation. - She had a one-hour glucose tolerance t est performed at [facility] with results reported as elevated at 194 mg/dL. - The ultrasound facility informed her the glucose was high but did not provide specific numbers. - She was told she likely needs a 3-ho ur glucose tolerance test. - She chooses to perform home glucose mo nitoring with fingersticks rather than the 3-hour glucose tolerance test. - Her next [facility] ultrasound appointment is scheduled for May 16 at [facility]. 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 - She experiences hands itching and has been diagnosed with carpal tunnel. - She notes feet swelling and numbness o n one side. - She has developed a rash and itching a ll over her body. - Currently using Benadryl cream for t he itching. - She reports severe heartburn. - Not taking any medication for heartb urn. - She has slightly raised glucose levels with fasting levels in the 130s. - Post-meal glucose levels stable at 1 20-130. - Not currently on medication for gluc ose management. - She denies having labs done at the hospital. - Order labs to check for pre- eclampsia and cholestasis, to be drawn on Tuesday with results expected by Tuesday or Tuesday - Start metformin once daily with dinner to help with fasting glucose levels - Cetirizine recommended for itching - Switch from Benadryl cream to Benadryl tablets - Medications to be sent to [facility] - Follow-up appointment scheduled for on e week - scheduled on July 12, at 38 weeks MARJORIE Calculator Estimated Delivery Date Method Current WG Current Estimate 07/17/25 Ultrasound #1 33w 4d Other Estimates 07/02/25 LMP (Certain) 35w 5d # 2 Notes Visit Date: 04/29/25 Last Updated by: Duane Vu MD Laboratory, Imaging, and Diagnostic Test Results - One-hour glucose tolerance test: 194 mg/dL (performed at [facility]) - NIPT: Performed at 8 weeks 3 days gestation - [facility] ultrasound (May 16, 2025): Twin B with left urinary tract dilatation noted - heart rate monitoring: Twin A 143 bpm, Twin B 132 bpm Visit Date: 03/27/25 Last Updated by: Duane Vu MD - ultrasound: - Fetus A: 601 grams (1 pound, 5 ounces), 45th percentile - Fetus B: 586 grams (1 pound, 4 ounces), 24th percentile - Weight discordance: 7% - Targeted anatomy: normal - Cervix: within normal limits - Aneuploidy screening: negative Visit Date: 03/06/25 Last Updated by: Duane Vu MD Laboratory, Imaging, and Diagnostic Test Results - Date: February 12, 2025 - CBC: Hemoglobin 12.2 g/dL, Platelet count 318 - Hemoglobin A1c: 5.8% - Urinalysis: Within normal limits - Serology: - RPR: Negative - Gonorrhea: Negative - Chlamydia: Negative - Hepatitis B: Negative - Hepatitis C: Negative - HIV 1 and 2: Negative - Rubella: Immune - Trichomonas: Negative - Ultrasound (February 12, 2025): - Twin A: Breech presentation, measuring 19 weeks 0 days - Twin B: Transverse presentation, measuring 18 weeks 1 day Office Procedures OBC Clinic LOC & Office Proc's Nursing/Assessment Patient Status: Established Patient OB Clinic Nursing Assessment: Medication Reconciliation, Update PMH in EMR and Vital Signs OB Clinic Coordination of Care: Consent,records obtained, informed consent, Education Simp Pt/Fam, Lab and Imaging orders, Results/Orders obtained and Staff clarify orders Special Needs: Heart tones Established Patient Charge Established Patient Point Assignment: 110 Established Patient Point Charge: EP Level 3 (80-115) Assessment & Plan Diagnosis / Problem List (1) Dichorionic diamniotic twin in third trimester: Status: Acute Plan Problem List - Dichorionic diamniotic twin at 33 weeks 2 days gestation - Gestational diabetes mellitus - Carpal tunnel syndrome - Cholestasis of - Gastroesophageal reflux disease Assessment 33-week and 2-day dichorionic diamniotic twin gestation with Baby A in cephalic presentation and Baby B in oblique lie. Patient presents with elevated fasting glucose levels in the 130s with post-meal levels stable at 120-130, suggesting gestational diabetes. Clinical concerns for possible pre-eclampsia and cholestasis of given patient's presentation of generalized rash and itching. Patient reports carpal tunnel syndrome with associated numbness, leg discomfort described as popping out of place, hand itching, and pedal edema. Severe heartburn is present without current treatment. Blood pressure remains stable at this time. Plan - Order labs to check for pre-eclampsia and cholestasis, to be drawn on Tuesday with results expected by Tuesday or Tuesday - Start metformin once daily with dinner to help with fasting glucose levels - Cetirizine recommended for itching - Switch from Benadryl cream to Benadryl tablets - Medications to be sent to [facility] - Follow-up appointment scheduled for one week - scheduled on July 12, 2025, at 38 weeks 1. Progress Reviewed gestational age at 33 weeks and 2 days with dichorionic diamniotic twins (Baby A cephalic, Baby B oblique), growth, and heart rate. Planned frequent visits (every 2 weeks until 36 weeks, then weekly). 2. Instructed patient to monitor movements and report decreases immediately. 3. Testing Counseled on routine third-trimester labs per guidelines. Discussed potential need for ultrasound or monitoring based on risk factors. 4. Preeclampsia Precaution Educated on preeclampsia signs: severe headache, vision changes, right upper quadrant pain, sudden swelling. Advised urgent reporting of symptoms and discussed blood pressure monitoring if high risk. 5. Labor Precautions Reviewed labor signs: regular contractions, pelvic pressure, back pain, bleeding, or fluid leakage. Instructed to seek immediate care for these symptoms. 6. Lifestyle and Delivery Preparation Reinforced vitamins, nutrition, and safe activity. Discussed plan, pain management, and . Advised on labor preparation (e.g., hospital bag) and expectations. 7. Psychosocial Support Assessed emotional well-being and offered resources for mental health or parenting support.
[2025-05-31 11:47] VITALS: BP 125/83; PULSE 90; RESP 18; TEMP 36.2; O2SAT 98
== END 2025-05-31 12:10 | disposition home or self-care (01) ==
LOC: HODSOBC 11:27
PROVIDERS: Supervising Provider Obstetrics & Gynecology; Visit Provider Obstetrics & Gynecology
DX: O09.893 Supervision of other high risk pregnancies, third trimester (principal); O30.043 Twin pregnancy, dichorionic/diamniotic, third trimester; O32.2XX2 Maternal care for transverse and oblique lie, fetus 2; O24.415 Gestational diabetes mellitus in pregnancy, controlled by oral hypoglycemic drugs; O99.353 Diseases of the nervous system complicating pregnancy, third trimester; G56.00 Carpal tunnel syndrome, unspecified upper limb; O99.613 Diseases of the digestive system complicating pregnancy, third trimester; K21.9 Gastro-esophageal reflux disease without esophagitis; O26.893 Other specified pregnancy related conditions, third trimester; L29.9 Pruritus, unspecified; Z3A.33 33 weeks gestation of pregnancy
CPT/HCPCS: 99213; G0463

== ENCOUNTER 2025-06-01 14:48 | Observation (INO) | payer BC, MEDICAID, SELFPAY ==
[2025-06-01] VITALS (9 sets, daily range): BP systolic 125–146; BP diastolic 72–81; PULSE 83–99; RESP 18–99; TEMP 36.8; BMI 41.7
[2025-06-01 15:43] LABS: Collection Type, Urine Clean Catch
[2025-06-01 15:55] LABS: Creatinine,Random Urine 70 mg/dL (30-125); Protein Total, Random Urine 11 mg/dL (1-14)
[2025-06-01 16:09] LABS: Bacteria,Urine Rare; Bilirubin,Urine Negative (Negative); Blood,Urine Negative (Negative); Color,Urine Lt-Yellow (Lt Yel-Yel); Culture Indicated,Urine Not Indicated; Glucose, Urine 1+ (Negative); Ketones,Urine Negative (Negative); Leukocyte Esterase,Urine Positive (Negative); Nitrite,Urine Negative (Negative); PH,Urine 6.5 (5.0-7.0); Protein,Urine Negative (Neg - Trace); RBC,Urine 2 /hpf (0-3); Specific Gravity,Urine 1.016 (1.001-1.035); Squamous Epithelial Cell,Urine 4 /hpf (0-5); Urobilinogen,Urine Negative mg/dL (0.0-1.0); WBC,Urine 6 /hpf (0-5)
[2025-06-01 16:10] LABS: Clarity,Urine Hazy (Clear/Hazy)
[2025-06-01 16:12] LABS: Basophils # (Auto) 0.0 Thou/mm3 (0.0-0.2); Basophils % (Auto) 0 % (0-2.5); Eosinophils # (Auto) 0.1 Thou/mm3 (0.0-0.5); Eosinophils % (Auto) 1 % (0-10); Hematocrit 34.6 % (36.0-46.0); Hemoglobin 11.9 g/dL (12.0-16.0); Immature Granulocytes Auto 0.02 Thou/mm3 (0.00-0.00); Lymphocytes # (Auto) 1.5 Thou/mm3 (1.0-4.8); Lymphocytes % (Auto) 18 % (10-50); Mean Corpuscular HGB Conc 34.4 g/dl (31.0-37.0); Mean Corpuscular Hemoglobin 29.8 pg (25.0-35.0); Mean Corpuscular Volume 87 fL (80-100); Monocytes # (Auto) 0.6 Thou/mm3 (0.0-0.8); Monocytes % (Auto) 8 % (0-12); Neutrophils # (Auto) 6.0 Thou/mm3 (1.8-7.7); Neutrophils % (Auto) 73 % (37-80); Nucleated Red Blood Cell # 0.00 Thou/mm3 (0.00-0.00); Nucleated Red Blood Cell % 0 /100 WBC (0); Platelet Count 266 Thou/mm3 (140-440); RDW Standard Deviation 40.2 fL (36.4-46.3); Red Blood Count 4.00 Miln/mm3 (4.00-5.20); White Blood Count 8.3 Thou/mm3 (3.6-11.0)
[2025-06-01 16:42] LABS: Alanine Aminotransferase 24 U/L (10-49); Albumin, Serum 3.8 gm/dL (3.5-5.0); Albumin/Globulin Ratio 1.6 (1.2-2.2); Alkaline Phosphatase 151 U/L (46-116); Anion Gap 12 (7-16); Aspartate Amino Transferase 29 U/L (0-34); BUN/Creatinine Ratio 15 Ratio (12-20); Bilirubin,Total 0.7 mg/dL (0.3-1.2); Blood Urea Nitrogen 6 mg/dL (9-23); Calcium 8.3 mg/dL (8.3-10.6); Calcium (Corrected) 8.5 mg/dL (8.5-10.1); Carbon Dioxide 19.5 mMol/L (20.0-31.0); Chloride 107 mMol/L (98-107); Creatinine (Component) 0.4 mg/dL (0.6-1.3); Estimated Creatinine Clearance 256.4 mL/min (>60); Globulin 2.4 gm/dL (2.3-3.5); Glucose 104 mg/dL (74-106); LDH (Lactate Dehydrogenase) 193 U/L (120-246); Osmolality,Calculated 273 (275-295); Potassium 3.7 mMol/L (3.4-5.1); Sodium 138 mMol/L (136-145); Total Protein 6.2 gm/dL (5.7-8.2); Uric Acid 2.2 mg/dL (3.1-7.8); eGFR > 60 See Note
[2025-06-01 16:54] LABS: INR 0.9 (0.9-1.3); Partial Thromboplastin Time 28.8 Seconds (22.0-36.0); Prothrombin Time 9.9 Seconds (9.0-12.2)
== END 2025-06-01 17:38 | disposition home or self-care (01) ==
PROVIDERS: Admitting Provider Obstetrics & Gynecology; Visit Provider Obstetrics & Gynecology
DX: O36.8130 Decreased fetal movements, third trimester, not applicable or unspecified (principal); O26.893 Other specified pregnancy related conditions, third trimester; L29.9 Pruritus, unspecified; R60.0 Localized edema; O99.891 Other specified diseases and conditions complicating pregnancy; N89.8 Other specified noninflammatory disorders of vagina; Z3A.33 33 weeks gestation of pregnancy
CPT/HCPCS: 36415; 59899; 80053; 81001; 82570; 83615; 83789; 84156; 84550; 85025; 85610; 85730; J0696; J3490

== ENCOUNTER 2025-06-10 13:02 | Outpatient (AMB) | payer BC, MEDICAID, SELFPAY ==
[2025-06-10 13:14] VITALS: BP 139/89; PULSE 94; RESP 18; TEMP 36.2; O2SAT 98
--- NOTE | 2025-06-10 13:14 | AMB.OBPNC ---
Vital Signs 06/10/25 13:14 Weight 114.475 kg Weight Measurement Method Standing Scale BP 139/89 H Blood Pressure Source Automatic Cuff Blood Pressure Location Left Upper Arm Position Sitting Respiration 18 Pulse 94 Pulse Source Monitor Temp 97.2 F Temp Source Oral Pulse Oximetry (%) 98 Oxygen Delivery Method Room Air Allergies/Home Meds Allergies & Medications Allergies No Known Allergies Allergy (Verified 06/10/25 13:14) Medication Reconciliation vit no.95-ferrous fumarate 28 mg-folic acid 800 mcg tablet () 1 tab PO DAILY 09/24/22 [History Confirmed 06/10/25] metformin 500 mg tablet 500 mg PO BID 11/30/22 [History Confirmed 06/10/25] aspirin 81 mg tablet,delayed release (Adult Aspirin Regimen) 81 mg PO QDAY #30 tabs 01/08/25 [Rx Confirmed 06/10/25] diphenhydramine-zinc acetate 1 %-0.1 % topical cream (Benadryl Itch Stopping) 1 applic topical BID #28.3 grams 01/08/25 [Rx Confirmed 06/10/25] vits no.130-ferrous fum 27 mg iron-folic acid 800 mcg tablet ( Vitamin) 1 tab PO QDAY #60 tabs 01/08/25 [Rx Confirmed 06/10/25] cetirizine 10 mg tablet 10 mg PO QDAY 30 days #30 tabs 06/10/25 [Rx] metformin 500 mg tablet 500 mg PO BID #30 tabs 06/10/25 [Rx] Immunizations Immunizations Flu Vaccine in the Last 12 Months: No Flu Vaccine Exclusion Criteria: Refused by Patient Care OB Visit Log OB Flowsheet Initial Weight: Not Recorded Date <del>?</del> EGA Weight BP Alb Glu CTX Pres Fundal ht FHR Mov Dilation Station Effacement Hx Notes Visit Note 01/08/25 <del>?</del> 12w 6d 108.976 kg 122/81 absent unknown 15 A 145 <del>?</del> B active 29-year-old 4 para 3 for OBI. Her last period September 25, 2024. Her EDC based on that 2025. Previous diabetes with the last on metformin. Patient is currently using advised that is checking her sugars daily. She reports that she has noticed that it increases her drops depending on her diet patient [facility] [place] [facility] was given Keflex for macular papular rash that she has had for 2 months and has worsened and spread more. She reports the rats can be very itchy. She denies any SAB complaints at this time and has light movement . I refilled the Benadryl cream that patient has been using for the rash. Consulted with OB. And did a prescription for Zyrtec that she will take daily. For the itching I ordered a OB panel with a CMP hemoglobin A1c and OB eye panel. We also did NIPT and carrier screens with that. Then I scheduled her an appointment [facility] with maternal- medicine for sono. Discussed SAB precautions. And I scheduled her for her next appointment with Dr. Ohara to evaluate her sugars. I discussed with patient GDM diet walking 40 minutes a day and I also talked to her if she could please Should the results of her blood sugars at fasting and then an hour after each. Reminded patient to bring her logs with her GDM results 02/12/25 <del>?</del> 17w 6d 107.671 kg 118/78 absent unknown A 145 <del>?</del> B 150 - Patient is currently checking her blood glucose levels. - She reports a rash that developed weeks after discovering her : - Duration: approximately 2.5 months - Distribution: widespread - Symptoms: itching, thinning of rash, formation of spots, scabbing - No discharge reported - Partial improvement noted - Previous treatment with unspecified medication was ineffective - Current management: Benadryl and oatmeal baths providing some relief - Patient is a transfer of care from another provider in the office. - She is from the [facility]. - Order OB panel labs (non-fasting) - Continue Benadryl and oatmeal baths for rash - Add blood tests to check liver and kidney function - Schedule ultrasound with radiology department to confirm twin - Monitor for call from [facility] and the [facility] specialist ultrasound in [place] - Continue blood glucose monitoring 03/06/25 <del>?</del> 21w 0d 107.218 kg 122/76 absent unstable A 135 <del>?</del> B 145 active - Jayda Nieto is a woman presenting for a visit for twins at 23 weeks and 1 day gestation. - Last ultrasound on 02/12/2025 showed: - Twin A: breech presentation, measuring 19 weeks 0 days - Twin B: transverse presentation, measuring 18 weeks 1 day - Patient reports her blood sugar levels have been stable - No longer experiencing low blood sugar episodes (previously dropped below 60) - Current levels typically stay between 100-120 mg/dL - Does not exceed 180 mg/dL, even after meals - Uses a continuous glucose monitor - Denies need for medication to control blood sugar at this time - Continue current management as all lab results are within normal limits - Repeat A1c test in one month - Follow up after appointment with Dr. Conti on March 19, 2025 - Await results from urgent referral to [facility] for detailed ultrasound of twins 03/27/25 <del>?</del> 24w 0d 108.919 kg 122/80 122/80 absent unknown A 145 <del>?</del> B 155 active History of prior delivery. Diamniotic dichorionic twin . Denies LOVING, VC, and epigastric pain. Return in 4 weeks. Continue MFM visits 04/29/25 <del>?</del> 28w 5d 108.579 kg 128/79 absent unstable A 143 <del>?</del> B 132 active - She reports both babies are active and don't stop moving. 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 - States it's harder to sit down at work now and has to stand up frequently. 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 - She plans to finish this week and start working from home on May 06 (next Tuesday). - Requests documentation for her HR department regarding work accommodation. - She had a one-hour glucose tolerance test performed at [facility] with results reported as elevated at 194 mg/dL. - The ultrasound facility informed her the glucose was high but did not provide specific numbers. - She was told she likely needs a 3-hour glucose tolerance test. - She chooses to perform home glucose monitoring with fingersticks rather than the 3-hour glucose tolerance test. - Her next [facility] ultrasound appointment is scheduled for May 16 at [facility]. - Patient will perform home glucose monitoring with glucometer 4 times daily: fasting upon waking and 1 hour after each meal - Provide work accommodation letter for patient to transmission worker starting May 06, 2025 - Follow-up appointment in 2 weeks - Next [facility] ultrasound scheduled for May 16, [address] Hanson 05/31/25 <del>?</del> 33w 2d 111.64 kg 125/83 occasional unstable A 145 <del>?</del> B 160 active - She reports legs feeling like they're popping out of place. - She experiences hands itching and has been diagnosed with carpal tunnel. - She notes feet swelling and numbness on one side. - She has developed a rash and itching all over her body. - Currently using Benadryl cream for the itching. - She reports severe heartburn. - Not taking any medication for heartburn. - She has slightly raised glucose levels with fasting levels in the 130s. - Post-meal glucose levels stable at 120-130. - Not currently on medication for glucose management. - She denies having labs done at the hospital. - Order labs to check for pre-eclampsia and cholestasis, to be drawn on Tuesday with results expected by Tuesday or Tuesday - Start metformin once daily with dinner to help with fasting glucose levels - Cetirizine recommended for itching - Switch from Benadryl cream to Benadryl tablets - Medications to be sent to [facility] - Follow-up appointment scheduled for one week - scheduled on July 12, 2025, at 38 weeks 06/10/25 <del>?</del> 34w 5d 114.475 kg 139/89 absent unstable A <del>?</del> B active - Jayda Nieto is a patient with dichorionic diamniotic twins, gestational diabetes mellitus (GDM), cholestasis, GERD, and carpal tunnel syndrome presenting for glucose monitoring. - Patient reports that metformin was never ordered despite being prescribed for glucose management. - States she called [facility] but they only had an antibiotic available. - Received a Rocephin shot instead. - Patient reports worsening symptoms (specific symptoms not clearly specified in transcript). - Tried cetirizine ([id number] antihistamine) and Benadryl for symptom management, but reports these are not helping. - Has upcoming ultrasound appointment scheduled for in [place]. - Patient notes she is now free from [employer] restrictions and can make her own appointments. - Send patient to labor and delivery for preeclampsia workup - Resend metformin prescription (prescription was sent but patient reports not receiving it) - Patient has scheduled ultrasound appointment in [place] on [place] Calculator Estimated Delivery Date Method Current WG Current Estimate 07/17/25 Ultrasound #1 34w 5d Other Estimates 07/02/25 LMP (Certain) 36w 6d # 2 Notes Visit Date: 06/10/25 Last Updated by: Duane Vu MD Problem List - Preeclampsia - Dichorionic diamniotic twin - Gestational diabetes mellitus - Cholestasis of - Gastroesophageal reflux disease - Carpal tunnel syndrome Visit Date: 04/29/25 Last Updated by: Duane Vu MD Laboratory, Imaging, and Diagnostic Test Results - One-hour glucose tolerance test: 194 mg/dL (performed at [facility]) - NIPT: Performed at 8 weeks 3 days gestation - [facility] ultrasound (May 16, 2025): Twin B with left urinary tract dilatation noted - heart rate monitoring: Twin A 143 bpm, Twin B 132 bpm Visit Date: 03/27/25 Last Updated by: Duane Vu MD - ultrasound: - Fetus A: 601 grams (1 pound, 5 ounces), 45th percentile - Fetus B: 586 grams (1 pound, 4 ounces), 24th percentile - Weight discordance: 7% - Targeted anatomy: normal - Cervix: within normal limits - Aneuploidy screening: negative Visit Date: 03/06/25 Last Updated by: Duane Vu MD Laboratory, Imaging, and Diagnostic Test Results - Date: February 12, 2025 - CBC: Hemoglobin 12.2 g/dL, Platelet count 318 - Hemoglobin A1c: 5.8% - Urinalysis: Within normal limits - Serology: - RPR: Negative - Gonorrhea: Negative - Chlamydia: Negative - Hepatitis B: Negative - Hepatitis C: Negative - HIV 1 and 2: Negative - Rubella: Immune - Trichomonas: Negative - Ultrasound (February 12, 2025): - Twin A: Breech presentation, measuring 19 weeks 0 days - Twin B: Transverse presentation, measuring 18 weeks 1 day Office Procedures OBC Clinic LOC & Office Proc's Nursing/Assessment Patient Status: Established Patient OB Clinic Nursing Assessment: Medication Reconciliation, Update PMH in EMR and Vital Signs OB Clinic Coordination of Care: Education Complex Pt/Fam, Consent,records obtained, informed consent, Lab and Imaging orders, Results/Orders obtained and Staff clarify orders Special Needs: Heart tones Established Patient Charge Established Patient Point Assignment: 115 Established Patient Point Charge: EP Level 3 (80-115) Assessment & Plan Diagnosis / Problem List (1) Dichorionic diamniotic twin in third trimester: Status: Acute Plan Problem List - Preeclampsia - Dichorionic diamniotic twin - Gestational diabetes mellitus - Cholestasis of - Gastroesophageal reflux disease - Carpal tunnel syndrome Assessment Patient with dichorionic diamniotic twins presenting with gestational diabetes mellitus (GDM), cholestasis, GERD, and carpal tunnel syndrome. Patient is being sent to labor and delivery for preeclampsia workup. There appears to be a medication dispensing issue with metformin for glucose management. Patient has an upcoming ultrasound scheduled in [place] on . Plan - Send patient to labor and delivery for preeclampsia workup - Resend metformin prescription (prescription was sent but patient reports not receiving it) - Patient has scheduled ultrasound appointment in [place] on 1. Progress Reviewed gestational age, growth, and heart rate. Planned frequent visits (every 2 weeks until 36 weeks, then weekly). 2. Instructed patient to monitor movements and report decreases immediately. 3. Testing Counseled on routine third-trimester labs per guidelines. Discussed potential need for ultrasound or monitoring based on risk factors. 4. Preeclampsia Precaution Educated on preeclampsia signs: severe headache, vision changes, right upper quadrant pain, sudden swelling. Advised urgent reporting of symptoms and discussed blood pressure monitoring if high risk. 5. Labor Precautions Reviewed labor signs: regular contractions, pelvic pressure, back pain, bleeding, or fluid leakage. Instructed to seek immediate care for these symptoms. 6. Lifestyle and Delivery Preparation Reinforced vitamins, nutrition, and safe activity. Discussed plan, pain management, and . Advised on labor preparation (e.g., hospital bag) and expectations. 7. Psychosocial Support Assessed emotional well-being and offered resources for mental health or parenting support.
== END 2025-06-10 13:44 | disposition home or self-care (01) ==
LOC: HODSOBC 13:02
PROVIDERS: Referring Provider Obstetrics & Gynecology; Supervising Provider Obstetrics & Gynecology; Visit Provider Obstetrics & Gynecology
DX: O09.893 Supervision of other high risk pregnancies, third trimester (principal); O30.043 Twin pregnancy, dichorionic/diamniotic, third trimester; O24.415 Gestational diabetes mellitus in pregnancy, controlled by oral hypoglycemic drugs; O26.643 Intrahepatic cholestasis of pregnancy, third trimester; O99.613 Diseases of the digestive system complicating pregnancy, third trimester; K21.9 Gastro-esophageal reflux disease without esophagitis; O99.353 Diseases of the nervous system complicating pregnancy, third trimester; G56.00 Carpal tunnel syndrome, unspecified upper limb; Z3A.34 34 weeks gestation of pregnancy; Z28.21 Immunization not carried out because of patient refusal
CPT/HCPCS: 99213; G0463

== ENCOUNTER 2025-06-10 14:09 | Outpatient (CLI) | payer BC, MEDICAID, SELFPAY ==
[2025-06-10 14:58] VITALS: BP 138/84; PULSE 80
--- NOTE | 2025-06-10 15:10 | XR_ITS ---
Examination: Biophysical profile, ultrasound twin A Date and time of exam: January 08, 2025, 1641 hours INDICATIONS: Twin gestations, diagnosis cholestasis of , diagnosis -induced hypertension Technique: Multiple transabdominal sonographic images of the pelvis abdomen obtained. Attention is directed to the breathing movement, gross body movement, amniotic fluid volume and tone. Findings: Amniotic fluid index 9.1 cm Total biophysical profile is 8 of 8. breathing movement is 2. Gross body movement is 2. tone is 2. Qualitative amniotic fluid volume is 2 Impression: Biophysical profile is 8 of 8. Twin A Examination: Biophysical profile, ultrasound, Twin B Date and time of exam: June 10, 2025, 1614 hours INDICATIONS: Twin gestations, diagnosis cholestasis of , diagnosis -induced hypertension Technique: Multiple transabdominal sonographic images of the pelvis abdomen obtained. Attention is directed to the breathing movement, gross body movement, amniotic fluid volume and tone. Findings: Amniotic fluid index 9.1 cm Total biophysical profile is 8 of 8. breathing movement is 2. Gross body movement is 2. tone is 2. Qualitative amniotic fluid volume is 2 Impression: Biophysical profile is 8 of 8. Twin B
[2025-06-10 15:18] VITALS: BP 138/82; PULSE 82
[2025-06-10 15:38] VITALS: BP 136/78; PULSE 74
[2025-06-10 15:55] VITALS: BP 138/84; PULSE 80; RESP 18; RESP 99; TEMP 36.9; BMI 42.3
[2025-06-10 15:57] LABS: Collection Type, Urine Clean Catch
[2025-06-10 16:01] LABS: Basophils # (Auto) 0.0 Thou/mm3 (0.0-0.2); Basophils % (Auto) 0 % (0-2.5); Eosinophils # (Auto) 0.1 Thou/mm3 (0.0-0.5); Eosinophils % (Auto) 1 % (0-10); Hematocrit 33.1 % (36.0-46.0); Hemoglobin 11.4 g/dL (12.0-16.0); Immature Granulocytes Auto 0.02 Thou/mm3 (0.00-0.00); Lymphocytes # (Auto) 1.2 Thou/mm3 (1.0-4.8); Lymphocytes % (Auto) 20 % (10-50); Mean Corpuscular HGB Conc 34.4 g/dl (31.0-37.0); Mean Corpuscular Hemoglobin 29.5 pg (25.0-35.0); Mean Corpuscular Volume 86 fL (80-100); Monocytes # (Auto) 0.5 Thou/mm3 (0.0-0.8); Monocytes % (Auto) 9 % (0-12); Neutrophils # (Auto) 4.1 Thou/mm3 (1.8-7.7); Neutrophils % (Auto) 69 % (37-80); Nucleated Red Blood Cell # 0.00 Thou/mm3 (0.00-0.00); Nucleated Red Blood Cell % 0 /100 WBC (0); Platelet Count 227 Thou/mm3 (140-440); RDW Standard Deviation 39.9 fL (36.4-46.3); Red Blood Count 3.86 Miln/mm3 (4.00-5.20); White Blood Count 5.9 Thou/mm3 (3.6-11.0)
[2025-06-10 16:11] LABS: Creatinine,Random Urine 63 mg/dL (30-125); Protein Total, Random Urine 10 mg/dL (1-14)
[2025-06-10 16:21] LABS: Bilirubin,Urine Negative (Negative); Blood,Urine Negative (Negative); Clarity,Urine Clear (Clear/Hazy); Color,Urine Lt-Yellow (Lt Yel-Yel); Glucose, Urine Negative (Negative); Ketones,Urine Negative (Negative); Leukocyte Esterase,Urine Negative (Negative); Nitrite,Urine Negative (Negative); PH,Urine 6.5 (5.0-7.0); Protein,Urine Negative (Neg - Trace); RBC,Urine 2 /hpf (0-3); Specific Gravity,Urine 1.015 (1.001-1.035); Squamous Epithelial Cell,Urine 3 /hpf (0-5); Urobilinogen,Urine Negative mg/dL (0.0-1.0); WBC,Urine < 1 /hpf (0-5)
[2025-06-10 16:24] LABS: Alanine Aminotransferase 14 U/L (10-49); Albumin, Serum 3.7 gm/dL (3.5-5.0); Albumin/Globulin Ratio 1.6 (1.2-2.2); Alkaline Phosphatase 160 U/L (46-116); Anion Gap 11 (7-16); Aspartate Amino Transferase 20 U/L (0-34); BUN/Creatinine Ratio 12 Ratio (12-20); Bilirubin,Total 0.7 mg/dL (0.3-1.2); Blood Urea Nitrogen 6 mg/dL (9-23); Calcium 8.2 mg/dL (8.3-10.6); Calcium (Corrected) 8.4 mg/dL (8.5-10.1); Carbon Dioxide 19.6 mMol/L (20.0-31.0); Chloride 108 mMol/L (98-107); Creatinine (Component) 0.5 mg/dL (0.6-1.3); Estimated Creatinine Clearance 206.6 mL/min (>60); Globulin 2.3 gm/dL (2.3-3.5); Glucose 123 mg/dL (74-106); Osmolality,Calculated 276 (275-295); Potassium 3.5 mMol/L (3.4-5.1); Sodium 139 mMol/L (136-145); Total Protein 6.0 gm/dL (5.7-8.2); eGFR > 60 See Note
[2025-06-15 13:50] LABS: Chenodeoxycholic Acid* 3.3 umol/L (< OR = 3.9); Cholic Acid* 1.5 umol/L (< OR = 2.8); Deoxycholic Acid* 2.2 umol/L (< OR = 2.3)
[2025-06-18 06:57] LABS: Total Bile Acids 7.0 umol/L (< OR = 8.3)
== END 2025-06-10 17:25 | disposition home or self-care (01) ==
LOC: S4S1 14:12 → S4SX 14:18
PROVIDERS: Referring Provider Obstetrics & Gynecology; Visit Provider Obstetrics & Gynecology
DX: O26.893 Other specified pregnancy related conditions, third trimester (principal); L29.9 Pruritus, unspecified; Z3A.34 34 weeks gestation of pregnancy
CPT/HCPCS: 36415; 59025; 76819; 80053; 81001; 82570; 83789; 84156; 85025

== ENCOUNTER 2025-06-13 10:37 | Observation (INO) | payer BC, MEDICAID, SELFPAY ==
[2025-06-13 10:45] VITALS: BP 133/64; PULSE 85; RESP 18; RESP 99; TEMP 36.7; BMI 42.7
[2025-06-13 11:03] VITALS: BP 133/64; PULSE 85
[2025-06-13] MEDS: BETAMET ACET/BETAMET NA PH (Celestone) 6 MG/ML VIAL 12 MG IM (12:13)
== END 2025-06-13 12:15 | disposition home or self-care (01) ==
PROVIDERS: Admitting Provider Obstetrics & Gynecology; Visit Provider Obstetrics & Gynecology
DX: Z34.83 Encounter for supervision of other normal pregnancy, third trimester (principal); Z3A.35 35 weeks gestation of pregnancy
CPT/HCPCS: 59025; 59899; 96372; J0702

== ENCOUNTER 2025-06-14 12:25 | Outpatient (CLI) | payer BC, MEDICAID, SELFPAY ==
[2025-06-14 12:25] VITALS: BP 138/61; PULSE 91; RESP 17; RESP 98; TEMP 36.8; BMI 42.3
[2025-06-14 12:30] VITALS: PULSE 93; O2SAT 98
[2025-06-14 12:35] VITALS: PULSE 89; O2SAT 98
[2025-06-14 12:40] VITALS: PULSE 108; O2SAT 98
[2025-06-14 12:45] VITALS: BP 130/67; PULSE 86; O2SAT 98
[2025-06-14 12:50] VITALS: PULSE 106; O2SAT 97
[2025-06-14] MEDS: BETAMET ACET/BETAMET NA PH (Celestone) 6 MG/ML VIAL 12 MG IM (12:57)
== END 2025-06-14 13:00 | disposition home or self-care (01) ==
LOC: S4S1 12:27 → S4SX 12:28
PROVIDERS: Referring Provider Obstetrics & Gynecology; Visit Provider Obstetrics & Gynecology
DX: Z34.83 Encounter for supervision of other normal pregnancy, third trimester (principal); Z3A.35 35 weeks gestation of pregnancy; Z36.9 Encounter for antenatal screening, unspecified
CPT/HCPCS: 96372; J0702

== ENCOUNTER 2025-06-19 09:04 | Outpatient (RCR) | payer BC, MEDICAID, SELFPAY ==
--- NOTE | 2025-06-19 09:24 | XR_ITS ---
Examination: Biophysical profile, ultrasound, twin A Date and time of exam: June 19, 2025, 0928 hours INDICATIONS: Twin gestations, diagnosis cholestasis of Technique: Multiple transabdominal sonographic images of the pelvis abdomen obtained. Attention is directed to the breathing movement, gross body movement, amniotic fluid volume and tone. Findings: Amniotic fluid index 10.4 cm Total biophysical profile is 8 of 8. breathing movement is 2. Gross body movement is 2. tone is 2. Qualitative amniotic fluid volume is 2 Impression: Biophysical profile is 8 of 8. Twin A Examination: Biophysical profile, ultrasound, Twin B Date and time of exam: June 19, 2025, 0938 hours INDICATIONS: Twin gestations, diagnosis cholestasis of Technique: Multiple transabdominal sonographic images of the pelvis abdomen obtained. Attention is directed to the breathing movement, gross body movement, amniotic fluid volume and tone. Findings: Amniotic fluid index 6.9 cm Total biophysical profile is 8 of 8. breathing movement is 2. Gross body movement is 2. tone is 2. Qualitative amniotic fluid volume is 2 Impression: Biophysical profile is 8 of 8. Twin B
[2025-06-19 10:03] VITALS: BP 127/74; PULSE 85; RESP 16
== END 2025-06-19 23:59 | disposition home or self-care (01) ==
LOC: S4S1 09:04
PROVIDERS: PCP Physician Assistant; Referring Provider Obstetrics & Gynecology; Visit Provider Obstetrics & Gynecology
DX: O30.043 Twin pregnancy, dichorionic/diamniotic, third trimester (principal); O09.93 Supervision of high risk pregnancy, unspecified, third trimester; Z3A.36 36 weeks gestation of pregnancy
CPT/HCPCS: 59025; 76819

== ENCOUNTER 2025-06-21 08:49 | Outpatient (AMB) | payer BC, MEDICAID, SELFPAY ==
[2025-06-21 08:57] VITALS: BP 136/81; PULSE 90; RESP 18; TEMP 36.2; O2SAT 98
--- NOTE | 2025-06-21 08:57 | OBCLNT_ITS ---
Vital Signs 06/21/25 08:57 Weight 113.852 kg Weight Measurement Method Standing Scale BP 136/81 H Blood Pressure Source Automatic Cuff Blood Pressure Location Left Upper Arm Position Sitting Respiration 18 Pulse 90 Pulse Source Monitor Temp 97.2 F Temp Source Oral Pulse Oximetry (%) 98 Oxygen Delivery Method Room Air Allergies/Home Meds Allergies & Medications Allergies No Known Allergies Allergy (Verified 06/21/25 08:58) Medication Reconciliation vit no.95-ferrous fumarate 28 mg-folic acid 800 mcg tablet () 1 tab PO DAILY 09/24/22 [History Confirmed 06/21/25] metformin 500 mg tablet 500 mg PO BID 11/30/22 [History Confirmed 06/21/25] aspirin 81 mg tablet,delayed release (Adult Aspirin Regimen) 81 mg PO QDAY #30 tabs 01/08/25 [Rx Confirmed 06/21/25] diphenhydramine-zinc acetate 1 %-0.1 % topical cream (Benadryl Itch Stopping) 1 applic topical BID #28.3 grams 01/08/25 [Rx Confirmed 06/21/25] vits no.130-ferrous fum 27 mg iron-folic acid 800 mcg tablet ( Vitamin) 1 tab PO QDAY #60 tabs 01/08/25 [Rx Confirmed 06/21/25] cetirizine 10 mg tablet 10 mg PO QDAY 30 days #30 tabs 06/10/25 [Rx Confirmed 06/21/25] metformin 500 mg tablet 500 mg PO BID #30 tabs 06/10/25 [Rx Confirmed 06/21/25] Immunizations Immunizations Flu Vaccine in the Last 12 Months: No Flu Vaccine Exclusion Criteria: Refused by Patient Care OB Visit Log OB Flowsheet Initial Weight: Not Recorded Date -?-?-?-?-?-?-?-?-?-?-?-?- EGA Weight BP Alb Glu CTX Pres Fundal ht FHR Mov Dilation Station Effacement Hx Notes Visit Note 01/08/25 -?-?-?-?-?-?-?-?-?-?-?-?- 12w 6d 108.976 kg 122/81 absent unknown 15 A 145 -?-?-?-?-?-?-?-?-?-?-?-?- B active 29-year-old g ravida 4 para 3 for OBI. Her last period September 25, 2024. Her EDC based on that 2025. Previous diabetes with the last on metformin. Patient is currently using advised that is checking her sugars daily. She reports that she has noticed that it increases her drops depending on her diet [facility] was [facility] Keflex for macular papular rash that she has had for 2 months and has worsened and spread more. She reports the rats can be very itchy. She denies any SAB complaints at this time and has light movement . I refilled the Benadryl cream that patient has been using for the rash. Consulted with OB. And did a prescription for Zyrtec that she will take daily. For the itching I ordered a OB panel with a CMP hemoglobin A1c and OB eye panel. We also did NIPT and carrier screens with that. Then I scheduled her an appointment [facility] with maternal- medicine for sono. Discussed SAB precautions. And I scheduled her for her next appointment with Dr. Ohara to evaluate her sugars. I discussed with patient GDM diet walking 40 minutes a day and I also talked to her if she could please Should the results of her blood sugars at fasting and then an hour after each. Reminded patient to bring her logs with her GDM results 02/12/25 -?-?-?-?-?-?-?-?-?-?-?-?- 17w 6d 107.671 kg 118/78 absent unknown A 145 -?-?-?-?-?-?-?-?-?-?-?-?- B 150 - Patient is currently checking her blood glucose levels. - She reports a rash that developed week s after discovering her : - Duration: approximately 2.5 months - Distribution: widespread - Symptoms: itching, thinning of rash, formation of spots, scabbing - No discharge reported - Partial improvement noted - Previous treatment with unspecified medication was ineffective - Current management: Benadryl and oat meal baths providing some relief - Patient is a transfer of care from ano ther provider in the office. - She is from the [facility]. - Order OB panel labs (non-fasting) - Continue Benadryl and oatmeal baths fo r rash - Add blood tests to check liver and kid bri function - Schedule ultrasound with radiology dep artment to confirm twin - Monitor for call from [facility] regarding specialist ultrasound in [place] - Continue blood glucose monitoring 03/06/25 -?-?-?-?-?-?-?-?-?-?-?-?- 21w 0d 107.218 kg 122/76 absent unstable A 135 -?-?-?-?-?-?-?-?-?-?-?-?- B 145 active - Jayda Nieto is a woman presenting for a visit for twins at 23 weeks and 1 day gestation. - Last ultrasound on 02/12/2025 showed: - Twin A: breech presentation, measuri ng 19 weeks 0 days - Twin B: transverse presentation, syd suring 18 weeks 1 day - Patient reports her blood sugar levels have been stable - No longer experiencing low blood sug ar episodes (previously dropped below 60) - Current levels typically stay betwee n 100-120 mg/dL - Does not exceed 180 mg/dL, even afte r meals - Uses a continuous glucose monitor - Denies need for medication to control blood sugar at this time - Continue curr ent management as all lab results are within normal limits - Repeat A1c test in one month - Follow up after appointment with Dr. Yudelka mays on March 19, 2025 - Await results from urgent referral to [facility] for detailed ultrasound of twins 03/27/25 -?-?-?-?-?-?-?-?-?-?-?-?- 24w 0d 108.919 kg 122/80 122/80 absent unknown A 145 -?-?--?-?-?-?-?-?-?-?-?-?- B 155 active History of prior delivery. Diamniotic dichorionic twin . Denies LOVING, VC, and epigastric pain. Return in 4 weeks. Continue MFM visits 04/29/25 -?-?-?-?-?-?-?-?-?-?-?-?- 28w 5d 108.579 kg 128/79 absent unstable A 143 -?-?-?-?-?-?-?-?-?-?-?-?- B 132 active - She re ports both babies are active and don't stop moving. 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 - States it's harder to sit down at w ork now and has to stand up frequently. 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 - Her boss has agreed to allow her to wo rk from home. - She plans to finish this week and st art working from home on May 06 (next Tuesday). - Requests documentation for her HR de partment regarding work accommodation. - She had a one-[facility] glucose tolerance t est [facility] with results reported as elevated at 194 mg/dL. - The ultrasound facility informed her the glucose was high but did not provide specific numbers. - She was told she likely needs a 3-ho ur glucose tolerance test. - She chooses to perform home glucose mo nitoring with fingersticks rather than the 3-hour glucose tolerance test. - Her next [facility] ultrasound appointment is scheduled for [address] [facility]. 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 - Both fetuses had normal targeted randolph lotus - Previously noted urinary tract dilat ation in one fetus has resolved - Fetus A is cephalic with estimated f etal weight of 1706 grams (29th percentile) - Fetus B is oblique with head to mate rnal right, estimated weight of 1810 grams (45th percentile) - 6% discordancy between twins - She reports experiencing significant p ain recently. - She has been seeing spots when doing a ctivities, which she was concerned might indicate preeclampsia. - She notes her blood pressure has bee n fine - She reports difficulty distinguishing contractions from general discomfort due to pressure from carrying twins. - Describes feeling like period cramps and significant discomfort from two babies - She had urine checked for urinary trac t infection due to her pain symptoms. - She requests a work leave letter with a specific start date as her previous letter was rejected for lacking this information. - She inquires about scheduling her section. - scheduled for July 02 at 7:30 AM (38 weeks gestation) - Follow-up in 2 weeks - Work leave letter to be provided with start date of May 27 - Check urine results 05/31/25 -?-?-?-?-?-?-?-?-?-?-?-?- 33w 2d 111.64 kg 125/83 occasional unstab le A 145 -?-?-?-?-?-?-?-?-?-?-?-?- B 160 active - She re ports legs feeling like they're popping out of place. - She experiences hands itching and has been diagnosed with carpal tunnel. - She notes feet swelling and numbness o n one side. - She has developed a rash and itching a ll over her body. - Currently using Benadryl cream for t he itching. - She reports severe heartburn. - Not taking any medication for heartb urn. - She has slightly raised glucose levels with fasting levels in the 130s. - Post-meal glucose levels stable at 1 20-130. - Not currently on medication for gluc ose management. - She denies having labs done at the hospital. - Order labs to check for pre- eclampsia and cholestasis, to be drawn on Tuesday with results expected by Tuesday or Tuesday - Start metformin once daily with dinner to help with fasting glucose levels - Cetirizine recommended for itching - Switch from Benadryl cream to Benadryl tablets - Medications to be sent to [facility] - Follow-up appointment scheduled for on e week - scheduled on July 12, at 38 weeks 06/10/25 -?-?-?-?-?-?-?-?-?-?-?-?- 34w 5d 114.475 kg 139/89 absent unstable A -?-?-?-?-?-?-?-?-?--?-?-?- B active - Jayda winkler is a patient with dichorionic diamniotic twins, gestational diabetes mellitus (GDM), cholestasis, GERD, and carpal tunnel syndrome presenting for glucose monitoring. - Patient reports that metformin was nev er ordered despite being prescribed for glucose management. - States she called [facility] but they only had an antibiotic available. - Received a Rocephin shot instead. - Patient reports worsening symptoms (sp ecific symptoms not clearly specified in transcript). - Tried cetirizine (lbzu-isn-skcodsx ant ihistamine) and Benadryl for symptom management, but reports these are not helping. - Has upcoming ultrasound appointment sc heduled for in [place]. - Patient notes she is now free from [facility] restrictions and can make her own appointments. - Send patient t o labor and delivery for preeclampsia workup - Resend metformin prescription (prescri ption was sent but patient reports not receiving it) - Patient has scheduled ultrasound appoi ntment in [place] on 06/21/25 -?-?-?-?-?-?-?-?-?-?-?-?- 36w 2d 113.852 kg 136/81 frequent unknown A -?-?-?-?-?-?-?-?-?-?-?-?- B active - She reports experiencing intermittent cramping that would come and go with hours between episodes, but yesterday the cramping became constant and has not stopped. - The cramping occurs almost all day arthur g with varying intensity. - Some episodes are mild and cause dis comfort that she can tolerate. - Other episodes are more severe, caus ing shortness of breath and tightening sensation. - She continues to experience the crampi ng through the night, even when trying to rest and sleep. - Patient reports decreased moveme nt, noting that one baby doesn't move at all anymore, though she acknowledges this may be due to limited space as the babies grow. - She has been trying to avoid activity and relax at home to manage the symptoms . - Patient expresses concern about potent ially going into labor and has prepared her family to care for her other children if hospitalization becomes necessary. - Send patient to labor and delivery for urgent assessment and continuous monitoring - Cervical examination performed - cervi x 1 cm dilated, fingertip only - GBS culture obtained - Order ultrasound to assess both babies - Monitor for cervical changes and contr action pattern - Send to 4th floor for observation MARJORIE Calculator Estimated Delivery Date Method Current WG Current Estimate 07/17/25 Ultrasound #1 36w 2d Other Estimates 07/02/25 LMP (Certain) 38w 3d # 2 Notes Visit Date: 06/21/25 Last Updated by: Duane Vu MD - Previous labs for cholestasis and preeclampsia: All within normal limits - Maternal ultrasound (June 13): - Dichorionic diamniotic twins corresponding to clinical gestational age of 35 weeks and 3 days - Baby A: 2539 grams (33rd percentile) - Baby B: 2739 grams (56th percentile) - Growth parameters normal - Normal amniotic fluid volume - Anterior placenta for Baby A, posterior placenta for Baby B - No placenta previa - GBS culture: Performed during visit - Cervical examination: Cervix 1 cm dilated, fingertip only Visit Date: 06/10/25 Last Updated by: Duane Vu MD Problem List - Preeclampsia - Dichorionic diamniotic twin - Gestational diabetes mellitus - Cholestasis of - Gastroesophageal reflux disease - Carpal tunnel syndrome Visit Date: 05/17/25 Last Updated by: Duane Vu MD Laboratory, Imaging, and Diagnostic Test Results - Date: 05/16/2025 (Maternal Medicine visit) - ultrasound at 31 weeks 2 days gestation: - Fetus A: Estimated weight 1706 grams (3 pounds 12 ounces), 29th percentile, cephalic presentation - Fetus B: Estimated weight 1810 grams (4 pounds), 45th percentile, oblique presentation with head to maternal right - weight discordancy: 6% - Fetus A: Normal targeted anatomy - Fetus B: Normal anatomy, previously noted urinary tract dilatation now resolved - Examination limited due to crowding - Estimated due date updated to July 15 Visit Date: 04/29/25 Last Updated by: Duane Vu MD Laboratory, Imaging, and Diagnostic Test Results - One-hour glucose tolerance test: 194 mg/dL (performed at [facility]) - NIPT: Performed at 8 weeks 3 days gestation - [facility] ultrasound (May 16, 2025): Twin B with left urinary tract dilatation noted - heart rate monitoring: Twin A 143 bpm, Twin B 132 bpm Visit Date: 03/27/25 Last Updated by: Duane uV MD - ultrasound: - Fetus A: 601 grams (1 pound, 5 ounces), 45th percentile - Fetus B: 586 grams (1 pound, 4 ounces), 24th percentile - Weight discordance: 7% - Targeted anatomy: normal - Cervix: within normal limits - Aneuploidy screening: negative Visit Date: 03/06/25 Last Updated by: Duane Vu MD Laboratory, Imaging, and Diagnostic Test Results - Date: February 12, 2025 - CBC: Hemoglobin 12.2 g/dL, Platelet count 318 - Hemoglobin A1c: 5.8% - Urinalysis: Within normal limits - Serology: - RPR: Negative - Gonorrhea: Negative - Chlamydia: Negative - Hepatitis B: Negative - Hepatitis C: Negative - HIV 1 and 2: Negative - Rubella: Immune - Trichomonas: Negative - Ultrasound (February 12, 2025): - Twin A: Breech presentation, measuring 19 weeks 0 days - Twin B: Transverse presentation, measuring 18 weeks 1 day Office Procedures OBC Clinic LOC & Office Proc's Nursing/Assessment Patient Status: Established Patient OB Clinic Nursing Assessment: Medication Reconciliation, Update PMH in EMR and Vital Signs OB Clinic Coordination of Care: Complex Care and Chronic Disease 1-5, Consent,records obtained, informed consent, Education Simp Pt/Fam, Lab and Imaging orders, Results/Orders obtained and Staff clarify orders Special Needs: Heart tones Miscellaneous Interventions: Pelvic Comp w/OB cult Established Patient Charge Established Patient Point Assignment: 150 Established Patient Point Charge: EP Level 4 (120-155) Assessment & Plan Diagnosis / Problem List (1) Dichorionic diamniotic twin in third trimester: Status: Acute Plan Problem List - Twin , dichorionic diamniotic - Gestational diabetes mellitus - Cholestasis of - Preeclampsia - labor Assessment 29-year-old female at 36 weeks 2 days gestation with dichorionic diamniotic twin presenting with constant cramping since yesterday that includes episodes causing shortness of breath and abdominal tightening. Cervical examination reveals minimal dilation at approximately 1 centimeter fingertip. Patient has history of gestational diabetes, cholestasis, and preeclampsia evaluation with recent normal laboratory results. Most recent maternal ultrasound on June 13 showed dichorionic diamniotic twins with normal growth parameters (Baby A 2539 grams at 33rd percentile, Baby B 2739 grams at 56th percentile) corresponding to 35 weeks 3 days gestational age with normal amniotic fluid volumes. Patient reports decreased movement which is attributed to limited intrauterine space at current gestational age. Plan - Send patient to labor and delivery for urgent assessment and continuous monitoring - Cervical examination performed - cervix 1 cm dilated, fingertip only - GBS culture obtained - Order ultrasound to assess both babies - Monitor for cervical changes and contraction pattern - Send to 4th floor for observation 1. Progress Reviewed gestational age at 36 weeks 2 days with dichorionic diamniotic twins, growth with Baby A 2539 grams (33rd percentile) and Baby B 2739 grams (56th percentile), and heart rate. Patient reports decreased movement which is expected due to space constraints. Planned frequent visits with twice weekly surveillance as recommended. 2. Instructed patient to monitor movements and report decreases immediately. Patient educated that decreased movement is expected at this gestational age due to space limitations. 3. Testing GBS culture performed during visit. Previous labs for cholestasis and preeclampsia were within normal limits. Ultrasound ordered for labor and delivery assessment. 4. Preeclampsia Precaution Patient has history of preeclampsia evaluation with recent normal labs. Continuing monitoring given twin risk factors. 5. Labor Precautions Patient presenting with constant cramping since yesterday, some mild and some causing shortness of breath with tightening sensation. Cervical exam shows 1 cm dilation, fingertip. Patient sent to labor and delivery for continuous monitoring and contraction assessment due to concerning symptoms of possible labor. 6. Lifestyle and Delivery Preparation Patient reports being prepared with family support arranged for childcare when labor begins. Discussed unpredictability of twin timing and need for immediate assessment of current symptoms. 7. Psychosocial Support Patient expressing appropriate concern about potential early labor and has made preparations for family support during delivery.
== END 2025-06-21 09:45 | disposition home or self-care (01) ==
PROVIDERS: Supervising Provider Obstetrics & Gynecology; Visit Provider Obstetrics & Gynecology
DX: O09.893 Supervision of other high risk pregnancies, third trimester (principal); O30.043 Twin pregnancy, dichorionic/diamniotic, third trimester; O36.8130 Decreased fetal movements, third trimester, not applicable or unspecified; O09.293 Supervision of pregnancy with other poor reproductive or obstetric history, third trimester; O09.213 Supervision of pregnancy with history of pre-term labor, third trimester; Z3A.36 36 weeks gestation of pregnancy; Z86.32 Personal history of gestational diabetes; Z87.59 Personal history of other complications of pregnancy, childbirth and the puerperium; Z36.85 Encounter for antenatal screening for Streptococcus B
CPT/HCPCS: 99214; G0463

== ENCOUNTER 2025-06-21 10:29 | Inpatient (IN) | payer BC, MEDICAID, SELFPAY ==
[2025-06-21] VITALS (14 sets, daily range): BP systolic 85–148; BP diastolic 58–92; PULSE 69–100; RESP 12–99; TEMP 36.6–37.1; O2SAT 97–99; BMI 41.8; BMI 43.2; BMI 52.8
--- NOTE | 2025-06-21 10:35 | XR_ITS ---
Examination: Biophysical profile, ultrasound, twin A INDICATIONS: Twin gestations, decreased movement noted beginning 2 weeks ago Date and time of exam: June 21, 2025, 11:33 a.m. Technique: Multiple transabdominal sonographic images of the pelvis abdomen obtained. Attention is directed to the breathing movement, gross body movement, amniotic fluid volume and tone. Findings: Amniotic fluid index 9.7 cm Total biophysical profile is 8 of 8. breathing movement is 2. Gross body movement is 2. tone is 2. Qualitative amniotic fluid volume is 2 Impression: Biophysical profile is 8 of 8. Twin A Examination: Biophysical profile, ultrasound, Twin B Date and time of exam: June 21 from 2024, 1143 hours INDICATIONS: Decreased movement beginning 2 days ago Technique: Multiple transabdominal sonographic images of the pelvis abdomen obtained. Attention is directed to the breathing movement, gross body movement, amniotic fluid volume and tone. Findings: Amniotic fluid index 9.7 cm Total biophysical profile is 8 of 8. breathing movement is 2. Gross body movement is 2. tone is 2. Qualitative amniotic fluid volume is 2 Impression: Biophysical profile is 8 of 8. Twin B
[2025-06-21] MEDS: RINGERS LACTATED 1000 ML 1,000 ML 100 ML IV ×2 (13:10→14:37)
[2025-06-21 13:56] LABS: Basophils # (Auto) 0.0 Thou/mm3 (0.0-0.2); Basophils % (Auto) 0 % (0-2.5); Eosinophils # (Auto) 0.1 Thou/mm3 (0.0-0.5); Eosinophils % (Auto) 1 % (0-10); Hematocrit 35.5 % (36.0-46.0); Hemoglobin 11.9 g/dL (12.0-16.0); Immature Granulocytes Auto 0.03 Thou/mm3 (0.00-0.00); Lymphocytes # (Auto) 1.6 Thou/mm3 (1.0-4.8); Lymphocytes % (Auto) 21 % (10-50); Mean Corpuscular HGB Conc 33.5 g/dl (31.0-37.0); Mean Corpuscular Hemoglobin 28.5 pg (25.0-35.0); Mean Corpuscular Volume 85 fL (80-100); Monocytes # (Auto) 0.6 Thou/mm3 (0.0-0.8); Monocytes % (Auto) 8 % (0-12); Neutrophils # (Auto) 5.2 Thou/mm3 (1.8-7.7); Neutrophils % (Auto) 69 % (37-80); Nucleated Red Blood Cell # 0.00 Thou/mm3 (0.00-0.00); Nucleated Red Blood Cell % 0 /100 WBC (0); Platelet Count 257 Thou/mm3 (140-440); RDW Standard Deviation 39.5 fL (36.4-46.3); Red Blood Count 4.17 Miln/mm3 (4.00-5.20); White Blood Count 7.5 Thou/mm3 (3.6-11.0)
[2025-06-21 14:31] LABS: Syphilis Nonreactive (Nonreactive)
--- NOTE | 2025-06-21 15:09 | ESHP_ITS ---
Documentation for date of: 06/21/25 OB Labor/Induct. HPI History of Present Illness Chief complaint: Here for nonstress test, baby A had some decelerations : 4 Para: 3 Term pregnancies: 3 pregnancies: 0 Living children: 3 History of Abortions: Spontaneous and Elective: 0 History of sections: Yes History of : No MARJORIE: 07/15/25 Gestational Age (weeks): 36 Gestational Age (days): 2 History of present illness: The patient is a 29-year-old -0-0-3 at 36-2/7 weeks with an EDC of 07/15/2025 who presented for scheduled nonstress test today for dichorionic/diamniotic twins. She stated especially baby A was not moving as well. During her monitoring, baby A was found to have a couple of decelerations to the 90s. The patient was also found to be irregular nasrin and has a history of one prior . She is over 36 weeks with a couple of decelerations on baby A the decision was made to proceed with repeat low- transverse section. Of note, the BPP's on both babies were normal. History of Present Dating criteria: LMP confirmed by 1st trimester US Adequate Care: Yes Ultrasounds: normal mid trimester US (The patient has been co-managed with maternal- medicine and has had several normal level 2 ultrasounds throughout this ) Obstetrical complications: other (Dichorionic/diamniotic twins) Medical complications: none Labs Maternal Blood Type: B Pos Labs: Positive: Rubella Titre, Negative: RPR, Hepatitis B, HIV, Chlamydia and Gonorrhea and Unknown: Herpes Type 1, Herpes Type 2, Group Beta Strep and Covid-19 Review of Systems Review of Systems Narrative Review of Systems: Patient is alert and orient x 3 in no apparent distress Constitutional Comments: Patient denies loss of fluids or vaginal bleeding. She reports some decreased movement of twin A ,normal movement for twin B. She reports cramping and some contractions Past Medical History Surgical History SURGICAL: Positive Section Past Medical History Comments PMH COMMENT: Patient has a history of a blood transfusion after her last C- section. She has gestational diabetes and is on metformin. She denies any other chronic medical problems. Maternal BMI is 53. Meds Home Medications and Allergies Home Medications ?Medication ?Instructions ?Recorded ?Confirmed ?Type vit no.95-ferrous 1 tab PO DAILY 09/24/22 History fumarate 28 mg-folic acid 800 mcg tablet () metformin 500 mg tablet 500 mg PO BID 11/30/2206/21 History Allergies Allergy/AdvReac Type Severity Reaction Status Date / Time No Known Allergies Allergy Verified 06/21/25 12:44 OB Exam Physical Exam Vital signs: Temp Pulse Resp BP 97.8 F 83 18 126/75 06/21/25 10:44 06/21/25 10:44 06/21/25 10:44 06/21/25 10:44 Constitutional Constitutional: no acute distress, morbidly obese and cooperative Routine Cardiovascular Exam Cardiovascular: Present RRR Routine Abdominal Exam Abdominal: Present soft Comments: Prior Pfannenstiel scar Detailed Labor and Delivery Exam monitor accelerations: 15x15 monitor decelerations: Variable (Occasional variables Twin A) intermediate variability: Average (6-10) (Irregular) Tachysystole: No Contraction intensity: Moderate OB Results Labs 06/21/25 13:20 Labs: Short CBC 06/21/25 Range/Units 13:20 WBC 7.5 (3.6-11.0) Thou/mm3 Hgb 11.9 L (12.0-16.0) g/dL Hct 35.5 L (36.0-46.0) % Plt Count 257 D (140-440) Thou/mm3 OB Assessment & Plan Assessment and Plan (1) Dichorionic diamniotic twin in third trimester: Status: Acute Assessment and plan: With some early contractions and occasional decelrations of baby A for repeat C- section. (2) Gestational diabetes mellitus (GDM): Status: Acute (3) Morbid obesity with BMI of 50.0-59.9, adult: Status: Acute (4) Previous section complicating : Status: Acute Additional Plan Additional Plan Comment: For repeat section. [address], 2 units of blood on hold Patient was consented for repeat including the risk of bleeding infection blood transfusion damage to bowel bladder blood vessels other organs prolonged hospital stay and further surgery should above occur. All questions were answered all consents were signed We may place a Bakri balloon on the field. (2) Gestational diabetes mellitus (GDM) Qualifiers: Gestational diabetes mellitus control: oral hypoglycemic-controlled T rimester: third trimester Qualified Code(s): O24.415 - Gestational diabetes mellitus in , controlled by oral hypoglycemic drugs
[2025-06-21] MEDS: ceFAZolin/D5W 2 GM IV 2 GM/100 ML BAG IV (15:27)
[2025-06-21] MEDS: FAMOTIDINE INJ 10 MG/ML VIAL 2 ML 20 MG IV (15:27)
[2025-06-21] MEDS: METOCLOPRAMIDE INJ 5 MG/ML VIAL 2 ML 10 MG IVP (15:28)
--- NOTE | 2025-06-21 17:08 | PD.GYNPROC ---
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 She was 36-2/7 weeks . Both tracings were reactive ,however baby A did have a couple of variable decelerations on the monitor. Both twins had biophysical profile of 8 out of 8. The patient then began to have regular painful uterine contractions. As she had 1 prior section, baby A had a couple of variable decelerations, and the patient was showing signs of eminent labor, she was consented for a repeat low-transverse section Pre-Op diagnosis: 1. IUP 36-2/7 weeks 2. Dichorionic /diamniotic twins 3. The variable decelerations in twin A 4. Previous section x 1 5. regular uterine contractions 6. Maternal BMI of 53 Post-Op diagnosis: Same Anesthesia type: Spinal Procedure description: After obtaining informed consent, the patient was brought back to the operating room and spinal anesthesia administered. She was then prepped and draped in the dorsal supine position with a leftward tilt in a normal sterile fashion. A Soto catheter was inserted into the patient's bladder. The patient was given 2 g Ancef by anesthesia. A Pfannenstiel skin incision was made with a scalpel and carried down to the underlying fascia. The fascia was incised in the midline and the fascial incision extended laterally using Sotomayor scissors. The superior aspect of the fascia was grasped with Nikita clamps and the underlying rectus muscles dissected off using blunt and sharp dissection. This was repeated in the inferior aspect of the incision. The rectus muscle were in the midline the peritoneum was picked up and entered sharply with Metzenbaums. This was extended superiorly and inferiorly with good visualization of the bladder. The bladder blade was inserted, and the uterus incised in a low transverse fashion above the bladder reflection using a scalpel. The uterine incision was extended laterally using blunt dissection with the surgeon's fingers. The bag of water of twin A was ruptured and clear fluid was noted. The bladder blade was removed and twin A was delivered in a vertex presentation atraumatically. The cord was clamped and cut and the was handed off to the waiting pediatric staff. Cord blood was collected. Cord gases were saved. The bag zabala of baby B was then ruptured and clear fluid was noted. Baby B was delivered atraumatically in a vertex presentation. The cord was clamped and cut and the infant was handed off to the waiting pediatric staff. Cord blood was sent and cord gases were saved. The placenta was then manually removed, and the uterus exteriorized and cleared of all clots and debris. The uterine incision was repaired using 0 Monocryl in a running locked fashion. Excellent hemostasis was noted. The uterus was returned to the patient's abdominal cavity, and copious irrigation carried out with warm normal saline. The uterine incision was reexamined several times and noted to be hemostatic. After ensuring the rectus muscles were hemostatic, these were reapproximated in the midline using a running suture of 0 Monocryl. The fascia was closed with 0 Vicryl in a running fashion. The subcutaneous tissues were irrigated and found to be hemostatic. These were reapproximated using running suture of 2-0 plain. The skin was closed with a subcuticular suture of 4-0 Monocryl. The patient tolerated the procedure well, sponge, lap, needle, and instrument counts were correct x 2. The patient went to the recovery area awake and in stable condition. Both babies were doing well at the time of dictation Fluids: crystalloid Fluid amount (mL): 3,000 Urine output (mL): 150 Specimen: none Implants: None Estimated blood loss (ml): 150 Findings: Baby A: Liveborn male in the VTX presentation with no nuchal cord or meconium. Apgars were 7 and 9. Weight was 5 pounds 3 ounces. Baby B: Liveborn male in the VTX presentation with no nuchal cord or meconium. Apgars were 9 and 9. Weight was 6 pounds 3 ounces. The separate placentas appeared grossly normal. Patient's uterus was grossly normal as was her left ovary and fallopian tube. I could not find a right ovary or a discrete right fallopian tube. Her lower uterine segment was thick. There was very little scar tissue present in the patient's abdomen. Complications: none Surgical staff Ayan NETTLESA Operation Date: 06/21/25 16:15 <No data on this case meets the specified criteria> Diagnosis Discharge Diagnosis (1) Morbid obesity with BMI of 50.0-59.9, adult: Status: Acute Problem details: On Lovenox (2) Previous section complicating : Status: Acute Problem details: Status post repeat low-transverse section (3) Gestational diabetes mellitus (GDM): Status: Acute Problem details: Metformin (4) Dichorionic diamniotic twin in third trimester: Status: Acute Problem List Completed Was Problem List Reviewed/Reconciled?: Yes (3) Gestational diabetes mellitus (GDM) Qualifiers: Gestational diabetes mellitus control: oral hypoglycemic-controlled Trimester: third trimester Qualified Code(s): O24.415 - Gestational diabetes mellitus in , controlled by oral hypoglycemic drugs
[2025-06-21 22:27] LABS: Amphetamine/Metham Scrn,Ur OB Negative (Negative); Benzoylecgonine Screen, Ur OB Negative (Negative); Opiate Screen,Urine OB Negative (Negative); THC Screen,Urine OB Negative (Negative)
[2025-06-22] MEDS: KETOROLAC INJ 30 MG/ML VIAL IVP ×3 (00:11→15:28)
[2025-06-22] MEDS: OXYTOCIN in NS 20 units 20 UNIT/1,000 ML BAG 125 UNIT IV (01:16)
[2025-06-22 04:26] VITALS: BP 128/82; PULSE 84; RESP 16; TEMP 36.6; O2SAT 97
--- NOTE | 2025-06-22 05:53 | PD.LDDELA1 ---
Data (Multiple) Data Hx Section: Yes Maternal Blood Type: B Pos Rubella Titre: Positive RPR: Non-reactive Labs: Negative: RPR, Hepatitis B, HIV, Chlamydia, Gonorrhea and Group Beta Strep : 4 Term: 3 : 0 Livin Abortions: Spontaneous & Theraputic: 0 Delivery Data A Labor Data Induction/Augmentation Agent: None ROM date: 06/21/25 ROM time: 16:25 Amniotic membrane rupture type: Spontaneous Amniotic fluid description: Clear Delivery Data EDC: 07/17/25 EDC calculated by:: LMP/early US confirmation Date of arrival to unit: 06/21/25 Onset of labor date: 06/21/25 Onset of labor time: 16: Complete dilation date: 06/21/25 Complete dilation time: 16:25 delivery date: 06/21/25 [place] delivery time: 16: Gestational age (weeks): 36 Gestational age (days): 2 Placenta delivery date: 06/21/25 Placenta delivery time: 16:27 Delivered by: [facility] ([facility]) Delivery Nurse: Jennifer Nurse: Emi/Jazmin Support person(s) at delivery: FOB Other staff at delivery: SEE OR RECORD Other staff at delivery: Physical therapy x 2, DR Roberts Delivery Method Delivery method: Low Transverse Presentation: Vertex position: OA Anesthesia Type Anesthesia Type: Spinal Delivery Room Medications Delivery room medications: Pitocin 20 u IV Placenta Placenta delivery description: Manual Removal Cord blood sent to lab: Yes cord blood collection: Cord Blood Type Episiotomy Episiotomy description: None EBL Estimated blood loss (ml): 500 Umbilical Cord cord description: 3 Vessels Additional Procedures The op report for further details Complications Complications: None Data A [place] Data order: 1 Gender - Fetus A: Male Identification band number: [id number] Weight Grams - Fetus A: 2485 gm length: 48.26 cm Additional Comments Additional comments: Apgars 7 and 9
[2025-06-22 05:58] LABS: Basophils # (Auto) 0.0 Thou/mm3 (0.0-0.2); Basophils % (Auto) 0 % (0-2.5); Eosinophils # (Auto) 0.0 Thou/mm3 (0.0-0.5); Eosinophils % (Auto) 0 % (0-10); Hematocrit 29.7 % (36.0-46.0); Hemoglobin 10.0 g/dL (12.0-16.0); Immature Granulocytes Auto 0.03 Thou/mm3 (0.00-0.00); Lymphocytes # (Auto) 1.3 Thou/mm3 (1.0-4.8); Lymphocytes % (Auto) 16 % (10-50); Mean Corpuscular HGB Conc 33.7 g/dl (31.0-37.0); Mean Corpuscular Hemoglobin 28.8 pg (25.0-35.0); Mean Corpuscular Volume 86 fL (80-100); Monocytes # (Auto) 0.6 Thou/mm3 (0.0-0.8); Monocytes % (Auto) 7 % (0-12); Neutrophils # (Auto) 6.4 Thou/mm3 (1.8-7.7); Neutrophils % (Auto) 76 % (37-80); Nucleated Red Blood Cell # 0.00 Thou/mm3 (0.00-0.00); Nucleated Red Blood Cell % 0 /100 WBC (0); Platelet Count 197 Thou/mm3 (140-440); RDW Standard Deviation 39.6 fL (36.4-46.3); Red Blood Count 3.47 Miln/mm3 (4.00-5.20); White Blood Count 8.5 Thou/mm3 (3.6-11.0)
--- NOTE | 2025-06-22 06:00 | OBDSUM_ITS ---
Data (Multiple) Data Hx Section: Yes Maternal Blood Type: B Pos Rubella Titre: Positive RPR: Non-reactive Labs: Negative: RPR, Hepatitis B, HIV, Chlamydia, Gonorrhea and Group Beta Strep : 4 Term: 3 : 0 Livin Abortions: Spontaneous & Theraputic: 0 Delivery Data B Labor Data Induction/Augmentation Agent: None ROM date: 06/21/25 ROM time: 16: Amniotic membrane rupture type: Spontaneous Amniotic fluid description: Clear Delivery Data EDC: 07/17/25 EDC calculated by:: LMP/early US confirmation Gestational age (weeks): 36 Gestational age (days): 2 Onset of labor date: 06/21/25 Onset of labor time: 16: Complete dilation date: 06/21/25 Complete dilation time: 16: delivery date: 06/21/25 delivery time: 16: Placenta delivery date: 06/21/25 Placenta delivery time: 16: Stage 1 total time (B): Labor - Stage 1 Duration 0 minutes Stage 2 total time (B): Labor - Stage 2 Duration 0 minutes Stage 3 total time (B): Labor - Stage 3 Duration 1 minutes Delivered by: [facility]ha E[facility] ([facility]) Delivery nurse: Albaro COMER nurse: Phillip ORTIZ Respiratory therapist(s) at delivery: Yes Brazer Crawler Torch at delivery: No Support person(s) at delivery: FOB Delivery Method Delivery method: Low Transverse Presentation: Vertex position: OA Anesthesia Type Anesthesia Type: Spinal Delivery Room Medications Delivery room medications: Pitocin 20 u IV Placenta Placental delivery description: Manual Removal Cord blood sent to lab: Yes cord blood collection: Cord Blood Type Episiotomy Episiotomy description: None EBL Estimated blood loss (ml): 500 Umbilical Cord cord description: 3 Vessels Additional Procedures See op report for further details Complications Complications: None [place] Data B [place] Data order: 2 Gender - Fetus B: Male Identification band number: [id number] weight (lbs): 2806.603 g length: 50.8 cm Additional Comments Additional comments: Apgars 9 and 9
[2025-06-22 08:00] VITALS: BP 143/85; PULSE 80; RESP 16; TEMP 36.6; O2SAT 96
[2025-06-22] MEDS: ENOXAPARIN SOD INJ 40 MG/0.4 ML SYRINGE SC (08:33)
[2025-06-22] MEDS: DOCUSATE SOD 100 MG CAPSULE PO (08:33)
[2025-06-22] MEDS: PRENATAL VITAMIN/FE FUM/FA TABLET 1 TAB PO (08:33)
[2025-06-22 12:00] VITALS: BP 138/81; PULSE 92; RESP 16; TEMP 36.6
--- NOTE | 2025-06-22 13:51 | PC.SS ---
GENERATOR ASSEMBLER conducted bedside contact with the patient to address nursing referral indicating patient possessed history of cocaine use. GENERATOR ASSEMBLER introduced self and role. Patient denied past history of drug use, mental health disorders, domestic violence and CPS involvement. Patient confirmed demographic information and stated that she lives with her significant other Rico who is the FOB. Patient stated that FOB is present and will be providing transportation. Patient stated that Infants were delivered via and one was taken to NICU but is now in the room with client. Patient interacting appropriately with . OB services provided by Dr. Cervantes with [facility]. Patient reports compliance with OB appointments. Patient plans on formula feeding infants. Patient is aligned with WIC, SNAP or TANF. Patient has access to appropriate supplies and equipment. Patient stated that she has three other children at home female age 13, female age 8, male age 2.Patient describes possessing support system consisting of spouse and extended family. GENERATOR ASSEMBLER provided community resources to include [employer] and [employer] [employer] [facility]. No further intervention required at this time, addiction social worker will be available to address any further concerns. GENERATOR ASSEMBLER updated bedside nurse.
[2025-06-22 15:15] VITALS: BP 133/82; PULSE 87; RESP 17; TEMP 36.8; O2SAT 98
[2025-06-22 20:00] VITALS: BP 134/81; PULSE 106; RESP 15; TEMP 36.6; O2SAT 98
--- NOTE | 2025-06-22 22:30 | PD.LDPPPRG ---
Subjective Subjective Interval history: The patient is a 29-year-old -1-0-5 postop day 1 status post repeat low-transverse section for twins and labor at 36-2/7 weeks. There were dichorionic/diamniotic twins. Today the patient is resting comfortably wearing her own pajamas. She is voiding, passing flatus , and ambulating .Both twins are at the bedside. She states one of her feet is more swollen than the other. She would like one of her hep locks to be removed. Exam Vital Signs Temp Pulse Resp BP Pulse Ox O2 Del Method 97.8 F 106 H 15 134/81 H 98 Room Air 06/22/25 20:00 06/22/25 20:00 06/22/25 20:00 06/22/25 20:00 06/22/25 20:00 06/22/25 20:00 Narrative Exam Patient is alert and orient x 3 in no apparent distress. Abdomen is soft obese fundus is firm below umbilicus Incision is clean dry and intact with no Dermabond type dressing present Extremities show no cyanosis clubbing or edema of either leg. Objective Labs 06/22/25 05:44 Labs: Laboratory Results - last 24 hr 06/22/25 05:44 WBC 8.5 RBC 3.47 L Hgb 10.0 L Hct 29.7 L MCV 86 MCH 28.8 MCHC 33.7 RDW Std Deviation 39.6 Plt Count 197 D Neut % (Auto) 76 Lymph % (Auto) 16 [place] % (Auto) 7 Eos % (Auto) 0 Baso % (Auto) 0 Neut # (Auto) 6.4 Lymph # (Auto) 1.3 [place] # (Auto) 0.6 Eos # (Auto) 0.0 Baso # (Auto) 0.0 Immature Gran # (Auto) 0.03 H Absolute Nucleated RBC 0.00 Immature Gran % 0 Nucleated RBC % 0 Assessment & Plan Problem List (1) Morbid obesity with BMI of 50.0-59.9, adult: Problem details: On Lovenox Status: Acute (2) Previous section complicating : Problem details: Postop day 1 status post repeat section. Patient is doing well. Recheck hemoglobin in the morning. Status: Acute (3) Gestational diabetes mellitus (GDM): Problem details: Hold metformin Status: Acute (4) Dichorionic diamniotic twin in third trimester: Status: Acute Time Spent With Patient Time: Total time spent is greater than 50% in coordination of care (as documented) at patient's floor/unit and/or counseling patient: Time with patient: less than 15 minutes
[2025-06-22 23:57] VITALS: BP 136/85; PULSE 100; RESP 16; TEMP 36.4; O2SAT 97
[2025-06-23 03:44] VITALS: BP 144/88; PULSE 96; RESP 18; TEMP 36.3; O2SAT 96
[2025-06-23] MEDS: IBUPROFEN TAB 400 MG TABLET 800 MG PO ×2 (03:55→15:20)
[2025-06-23 06:10] LABS: Basophils # (Auto) 0.0 Thou/mm3 (0.0-0.2); Basophils % (Auto) 0 % (0-2.5); Eosinophils # (Auto) 0.1 Thou/mm3 (0.0-0.5); Eosinophils % (Auto) 1 % (0-10); Hematocrit 28.3 % (36.0-46.0); Hemoglobin 9.3 g/dL (12.0-16.0); Immature Granulocytes Auto 0.03 Thou/mm3 (0.00-0.00); Lymphocytes # (Auto) 1.6 Thou/mm3 (1.0-4.8); Lymphocytes % (Auto) 25 % (10-50); Mean Corpuscular HGB Conc 32.9 g/dl (31.0-37.0); Mean Corpuscular Hemoglobin 28.4 pg (25.0-35.0); Mean Corpuscular Volume 86 fL (80-100); Monocytes # (Auto) 0.6 Thou/mm3 (0.0-0.8); Monocytes % (Auto) 9 % (0-12); Neutrophils # (Auto) 4.1 Thou/mm3 (1.8-7.7); Neutrophils % (Auto) 64 % (37-80); Nucleated Red Blood Cell # 0.00 Thou/mm3 (0.00-0.00); Nucleated Red Blood Cell % 0 /100 WBC (0); Platelet Count 217 Thou/mm3 (140-440); RDW Standard Deviation 40.0 fL (36.4-46.3); Red Blood Count 3.28 Miln/mm3 (4.00-5.20); White Blood Count 6.4 Thou/mm3 (3.6-11.0)
--- NOTE | 2025-06-23 08:23 | PD.LDDS ---
DS: Providers Provider Date of admission: 06/21/25 12:26 Primary care physician: Physician No Primary/Family Admitting Provider: Maliha [facility] MD ([facility]) Attending Provider on Admission: Maliha Easley MD ([facility]) Consults: 06/21/25 19:23 Referral Routine Comment: Attending Provider on DC: Andra Morrison MD Discharging Provider: Andra Morrison MD DS: Diagnosis Discharge Diagnosis (1) Previous section complicating : Status: Acute (2) Morbid obesity with BMI of 50.0-59.9, adult: Status: Acute (3) Gestational diabetes mellitus (GDM): Status: Acute (4) Dichorionic diamniotic twin in third trimester: Status: Acute Problem List Completed Was Problem List Reviewed/Reconciled?: Yes Summary/Hosp Course Brief History: The patient is a 29-year-old -0-0-3 at 36-2/7 weeks with an EDC of 07/15/2025 who presented for scheduled nonstress test today for dichorionic/diamniotic twins. She stated especially baby A was not moving as well. During her monitoring, baby A was found to have a couple of decelerations to the 90s. The patient was also found to be irregular nasrin and has a history of one prior . She is over 36 weeks with a couple of decelerations on baby A the decision was made to proceed with repeat low-transverse section. Of note, the BPP's on both babies were normal. patient had a LTCS on 06/21/2025 for previous c section and twins with above presentation / Today is POD #2 Peripartum Data Delivery Method: Low Transverse Episiotomy Description: None Laceration Description: see Delivery Summary Procedures: Procedures Operation Date: 06/21/25 16:15 Actual Procedure Side Surgeon p in OB Not Applicable Maliha Easley ([facility])MD complications: none Status at Discharge Cognitive/behavioral status at discharge: Patient has no complaints no Headache or blurry vision or epigastric pain No Chest pain or SOB No Palpitations No Nausea or vomiting or constipation No Back pain No Dysuria no Dizziness no calf pain / independent ambulation She is voiding spontaneously / adequately Passing flatus yes/ BM Lochia average yes Breast/ Bottle feeding Functional status at discharge: independent ambulation Overall status at discharge: patient is progressing back to baseline Time Spent with Patient Time attestation: Total time spent providing and/or coordinating discharge services: Time spent: Greater than 30 minutes Specific discharge activities: pelvic rest x 6 weeks / follow up in 2 weeks with her Ob Exam Vital Signs Temp Pulse Resp BP Pulse Ox O2 Del Method 97.3 F 96 18 144/88 H 96 Room Air 06/23/25 03:44 06/23/25 03:44 06/23/25 03:44 06/23/25 03:44 06/23/25 03:44 06/23/25 03:44 Narrative Exam alert x3 chest clear CVS RRR NO thyromegaly Uterus is nontender Uterus is firm/ appropriate size Just below the umbilicus Bowel sounds present Abdomen soft no hernias noted/no CVAT Incision CDI No drainage Appropriately tender No calf tenderness Edema mild Discharge Plan Plan Patient Disposition: HOME (Self Care) Prescriptions/Referrals Prescriptions/Med Rec: New hydrocodone-acetaminophen 5-325 mg Tablet 1 tab PO Q4HR MDD 3 PRN (Reason: Patient rated pain 7 to 8) Qty: 14 0RF ibuprofen 400 mg Tablet 800 mg PO Q8HR PRN (Reason: Pain Scale 4-6 (Moderate) Qty: 30 0RF No Action metformin 500 mg tablet 500 mg PO BID Qty: 30 2RF Benadryl Itch Stopping 1-0.1 % cream 1 applic topical BID Qty: 28.3 1RF aspirin [Adult Aspirin Regimen] 81 mg tablet,delayed release (DR/EC) 81 mg PO QDAY Qty: 30 3RF Vitamin 27 mg iron- 800 mcg tablet 1 tab PO QDAY Qty: 60 2RF PNV no.95-ferrous fumarate-FA [] 28 mg iron- 800 mcg tablet 1 tab PO DAILY Patient Comments: TAKE 1 TABLET BY MOUTH EVERY DAY metformin 500 mg Tablet 500 mg PO BID Referrals: No Primary/Family,Physician [Primary Care Provider] Patient/Caregiver Discharge Instructions Discharge Activity: activity as tolerated Other Discharge Activity Instructions:: pelvic rest x 6 weeks / follow up in 1 week for BP check with her ob Education Materials: C Section Dc, What Is Gestational Diabetes? Print Language: Setswana Stand Alone Forms: Marilynn Award Info., Patient Portal Info Letter Planned Discharge Date 06/23/25 (3) Gestational diabetes mellitus (GDM) Qualifiers: Gestational diabetes mellitus control: oral hypoglycemic-controlled Trimester: third trimester Qualified Code(s): O24.415 - Gestational diabetes mellitus in , controlled by oral hypoglycemic drugs
[2025-06-23] MEDS: ENOXAPARIN SOD INJ 40 MG/0.4 ML SYRINGE SC (08:38)
[2025-06-23] MEDS: PRENATAL VITAMIN/FE FUM/FA TABLET 1 TAB PO (08:38)
[2025-06-23] MEDS: DOCUSATE SOD 100 MG CAPSULE PO (08:38)
[2025-06-23] MEDS: ACETAMINOPHEN 325 MG TABLET 650 MG PO (08:46)
[2025-06-23 11:07] VITALS: BP 124/84; PULSE 92; RESP 16; TEMP 36.6; O2SAT 98
== END 2025-06-23 18:05 | disposition home or self-care (01) | DRG 788 ==
LOC: S4SX 14:17 → S4NX 15:51
PROVIDERS: Admitting Provider Obstetrics & Gynecology; Visit Provider Obstetrics & Gynecology
PROC: 10D00Z1 Extraction of Products of Conception, Low, Open Approach (ICD-10-PCS; CPT 59514; principal; 2025-06-21 16:00)
DX: O30.043 Twin pregnancy, dichorionic/diamniotic, third trimester (principal); Z3A.36 36 weeks gestation of pregnancy; Z37.2 Twins, both liveborn; O36.8130 Decreased fetal movements, third trimester, not applicable or unspecified; O76 Abnormality in fetal heart rate and rhythm complicating labor and delivery; O99.214 Obesity complicating childbirth; E66.01 Morbid (severe) obesity due to excess calories; O24.429 Gestational diabetes mellitus in childbirth, unspecified control
CPT/HCPCS: 36415; 59025; 76819; 80307; 85025; 86780; 86850; 86900; 86901; A4217; A4314; A4649; J0689; J1650; J1885; J2274; J2371; J2590; J2765; J3010; J3490; J7120; A9270; J2270